=== PATIENT | female | born 1975 | race Caucasian/White ===

== ENCOUNTER 2016-04-06 16:21 | Inpatient (IN) | payer MEDICAID ==
[2016-04-06 17:00] LABS: ABSOLUTE EOSINOPHILS # (AUTO) 0.1 10^3/uL (0.0-0.6); ABSOLUTE LYMPHOCYTES (AUTO) 3.5 10^3/uL (0.5-4.7); ABSOLUTE MONOCYTES (AUTO) 0.5 10^3/uL (0.1-1.4); ABSOLUTE NEUT (AUTO) 3.2 10^3/uL (1.7-8.2); BASOPHILS % (AUTO) 0.6 % (0-2); EOSINOPHILS % (AUTO) 1.8 % (0-6); HEMATOCRIT 40.2 % (36.0-47.0); HEMOGLOBIN 12.9 g/dL (12.0-15.5); HGB HCT DIFFERENCE -1.5; LYMPHOCYTES % (AUTO) 47.2 % (13-45); MEAN CORPUSCULAR HEMOGLOBIN 29.1 pg (27.0-33.4); MEAN CORPUSCULAR HGB CONC 32.2 g/dL (32.0-36.0); MEAN CORPUSCULAR VOLUME 90 fl (80-97); MONOCYTES % (AUTO) 6.5 % (3-13); RED BLOOD COUNT 4.45 10^6/uL (3.72-5.28); RED CELL DISTRIBUTION WIDTH 13.8 % (11.5-14.0); SEGMENTED NEUTROPHILS % (AUTO) 43.9 % (42-78); WHITE BLOOD COUNT 7.3 10^3/uL (4.0-10.5)
[2016-04-06 17:09] LABS: APPEARANCE,URINE CLOUDY; BILIRUBIN,URINE NEGATIVE (NEGATIVE); GLUCOSE, URINE NEGATIVE (NEGATIVE); KETONES,URINE TRACE mg/dL (NEGATIVE); LEUKOCYTE ESTERASE,URINE SMALL (NEGATIVE); NITRITE,URINE NEGATIVE (NEGATIVE); PROTEIN,URINE NEGATIVE (NEGATIVE); URINE SPECIFIC GRAVITY 1.023; UROBILINOGEN,URINE NEGATIVE mg/dL (<2.0)
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
[2016-04-06 17:21] LABS: ALANINE AMINOTRANSFERASE 12 U/L (9-52); ALBUMIN 3.6 g/dL (3.5-5.0); ALKALINE PHOSPHATASE 58 U/L (38-126); ANION GAP 12 (5-19); ASPARTATE AMINO TRANSFERASE 28 U/L (14-36); BILIRUBIN,TOTAL 0.3 mg/dL (0.2-1.3); BLOOD UREA NITROGEN 20 mg/dL (7-20); CALCIUM 9.5 mg/dL (8.4-10.2); CARBON DIOXIDE 27 mmol/L (22-30); CHLORIDE 103 mmol/L (98-107); CREATININE RESULT 0.93 mg/dL (0.52-1.25); GLUCOSE 84 mg/dL (75-110); POTASSIUM 4.4 mmol/L (3.6-5.0); SODIUM 141.5 mmol/L (137-145); TOTAL PROTEIN 6.7 g/dL (6.3-8.2)
[2016-04-06 17:22] LABS: ALCOHOL < 10 mg/dL (NONE DETECTED)
[2016-04-06 17:32] LABS: URINE BARBITURATES SCREEN NEGATIVE; URINE METHADONE SCREEN NEGATIVE; URINE PHENCYCLIDINE SCREEN NEGATIVE
[2016-04-06] MEDS ORDERED: ALBUTEROL SULFATE HFA (90 MCG/PUFF) 8 GM MDI (1 MDI/ER DISP) IH PRN (17:59)
[2016-04-06] MEDS ORDERED: NORMAL SALINE 1000 ML 1,000 ML IV ONE (18:09)
[2016-04-06] MEDS ORDERED: ACTIVATED CHARCOAL 25 GM BOTTLE PO PRN (18:10)
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
--- NOTE | 2016-04-06 21:48 | EKG REPORT ---
SEVERITY:- ABNORMAL ECG - SINUS RHYTHM NONSPECIFIC T ABNORMALITIES, INFERIOR LEADS : Confirmed by: James Hinson MD 06-Apr-2016 21:47:06
[2016-04-07] MEDS ORDERED: HALOPERIDOL LACTATE INJ 5 MG/1 ML VIAL IV ONE (01:40)
--- NOTE | 2016-04-07 04:59 | PDOC H&P ---
History of Present Illness Admission Date/PCP: 04/07/16 01:46 RYLAN BERGER Patient complains of: Valproic acid overdose History of Present Illness: MICHELLE POON is a 41 year old female with a past medical history of bipolar Depression and borderline personality disorder who reports the emergency room she has ingested 30 valproic acid 500 mg tablets 90 minutes prior to presentation in an effort to get some sleep. Patient denies suicidal ideation and refuses charcoal she is however also agitated and manic and found to have a valproic acid of 143 and referred to the hospitalist for admission. Poison control was contacted recommending supportive care and valproic acid level every 12 hours. Past Medical History Cardiac Medical History: Denies: Coronary Artery Disease, Myocardial Infarction, Hypertension Pulmonary Medical History: Reports: Asthma, Pneumonia Denies: Bronchitis, Chronic Obstructive Pulmonary Disease (COPD) Neurological Medical History: Reports: Migraine, Seizures - last one was 3-4 yrs ago. Musculoskeltal Medical History: Denies: Arthritis Psychiatric Medical History: Reports: Attention Deficit Hyperactivity Disorder, Bipolar Disorder, Depression Hematology: Denies: Anemia Past Surgical History Past Surgical History: Reports: Appendectomy, Hysterectomy, Tonsillectomy Denies: Pacemaker Social History Smoking Status: Current Every Day Smoker Cigarettes Packs Per Day: 0.5 Number of Years Smokin Last Time Smoked: 04/06/2016 Frequency of Alcohol Use: Rare Hx Recreational Drug Use: No - patient denies Drugs: None Hx Prescription Drug Abuse: No - Advance Directive Resuscitation Status: Full Code Family History Family History: None, Other - Refuses answer Parental Family History Reviewed: Yes Children Family History Reviewed: Yes Sibling(s) Family History Reviewed.: Yes Medication/Allergy Home Medications: Lamotrigine [Lamictal] 300 mg PO DAILY 10/11/12 Ziprasidone HCl [Geodon] 160 mg PO DAILY 10/11/12 Cephalexin Monohydrate [Keflex 500 mg Capsule] 500 mg PO QID 10 Days 08/22/13 Clonidine HCl [Catapres] 0.2 mg PO QHS 08/22/13 Methylphenidate HCl [Metadate Cd] 40 mg PO DAILY 08/22/13 Emtricitabine/Tenofovir [Truvada 200 mg-300 mg Tablet] 1 each PO DAILY #30 tablet 01/01/15 Raltegravir Potassium [Isentress 400 mg Tablet] 400 mg PO BID #60 tablet Clonazepam [Klonopin 1 mg Tablet] 1 mg PO TID 04/14/15 Prazosin HCl [Minipress] 5 mg PO DAILY 04/14/15 Divalproex Sodium [Depakote ER 500 mg Tab.sr] 2 tab PO HSP PRN 04/07/16 Meclizine HCl [Antivert 25 mg Tablet] 25 mg PO TIDP PRN 04/07/16 Allergies/Adverse Reactions: carbamazepine [From Tegretol] Allergy (Unknown, Verified 03/09/16 00:33) morphine [Morphine] Allergy (Unknown, Verified 03/09/16 00:33) terbutaline sulfate [From Brethine] Allergy (Unknown, Verified 03/09/16 00:33) prednisone [Prednisone] Allergy (Verified 03/09/16 00:33) oxycodone HCl [From Percocet] Adverse Reaction (Verified 03/09/16 00:33) itching Review of Systems ROS unobtainable: Due to mental status - [place] unreliable historian answering affirmatively to all questions and yelling at providers Physical Exam Vital Signs: Temp Pulse Resp BP Pulse Ox 97.9 F 73 17 95/62 L 98 04/07/16 01:26 04/07/16 02:00 04/07/16 01:26 04/07/16 01:26 04/07/16 01:26 General appearance: PRESENT: disheveled, severe distress. ABSENT: cooperative Head exam: PRESENT: atraumatic, normocephalic Eye exam: PRESENT: conjunctiva pink, EOMI, PERRLA. ABSENT: scleral icterus Mouth exam: PRESENT: moist, tongue midline Neck exam: ABSENT: carotid bruit, JVD, lymphadenopathy, thyromegaly Respiratory exam: PRESENT: clear to auscultation soo. ABSENT: rales, rhonchi, wheezes Cardiovascular exam: PRESENT: RRR. ABSENT: diastolic murmur, rubs, systolic murmur Pulses: PRESENT: normal dorsalis pedis pul GI/Abdominal exam: PRESENT: normal bowel sounds, soft. ABSENT: distended, guarding, mass, organolmegaly, rebound, tenderness Rectal exam: PRESENT: deferred Extremities exam: PRESENT: full ROM. ABSENT: calf tenderness, clubbing, pedal edema Neurological exam: PRESENT: altered, CN II-XII grossly intact Psychiatric exam: PRESENT: agitated, anxious, manic Focused psych exam: PRESENT: delusional, euphoric, flight of ideas, paranoid, psychomotor agitation, restlessness Skin exam: PRESENT: dry, intact, warm. ABSENT: cyanosis, rash Assessment & Plan - Diagnosis (1) valproic acid overdose Is this a current diagnosis for this admission?: YesPlan: Patient is admitted to a monitored bed with sitter as she is agitated with unclear intent of overdose given history of previous. She received when necessary Haldol reevaluation of chemistry for acidosis and symptomatic management (2) Tobacco abuse Is this a current diagnosis for this admission?: YesPlan: Tobacco Dependence patient received tobacco cessation counseling and offered nicotine replacement options - Time Time Spent: 30 to 50 Minutes
[2016-04-07] MEDS: HEPARIN SOD (PORCINE) 5,000 UNIT/ML 1 ML SYRINGE SUBCUT SCH ×3 (05:45→23:11)
[2016-04-07 08:41] LABS: ALANINE AMINOTRANSFERASE 13 U/L (9-52); ALBUMIN 3.2 g/dL (3.5-5.0); ALKALINE PHOSPHATASE 55 U/L (38-126); ANION GAP 12 (5-19); ASPARTATE AMINO TRANSFERASE 21 U/L (14-36); BILIRUBIN,TOTAL 0.3 mg/dL (0.2-1.3); BLOOD UREA NITROGEN 19 mg/dL (7-20); CALCIUM 8.9 mg/dL (8.4-10.2); CARBON DIOXIDE 23 mmol/L (22-30); CHLORIDE 107 mmol/L (98-107); CREATININE RESULT 0.83 mg/dL (0.52-1.25); GLUCOSE 79 mg/dL (75-110); POTASSIUM 4.1 mmol/L (3.6-5.0); SODIUM 141.9 mmol/L (137-145); TOTAL PROTEIN 6.1 g/dL (6.3-8.2)
[2016-04-07 08:45] LABS: HEMATOCRIT 37.3 % (36.0-47.0); HEMOGLOBIN 12.1 g/dL (12.0-15.5); MEAN CORPUSCULAR HEMOGLOBIN 29.2 pg (27.0-33.4); MEAN CORPUSCULAR HGB CONC 32.4 g/dL (32.0-36.0); MEAN CORPUSCULAR VOLUME 90 fl (80-97); RED BLOOD COUNT 4.14 10^6/uL (3.72-5.28); RED CELL DISTRIBUTION WIDTH 13.6 % (11.5-14.0)
[2016-04-07 08:48] LABS: BASOPHILS % (MANUAL) 0 % (0-2); EOSINOPHILS % (MANUAL) 0 % (0-6); LYMPHOCYTES % (MANUAL) 62 % (13-45); TOTAL CELLS COUNTED 100
[2016-04-07 08:49] LABS: RBC MORPHOLOGY COMMENT NORMO-CYTIC/CHROMIC
[2016-04-07] MEDS: CLONAZEPAM 1 MG TABLET PO SCH ×3 (09:10→18:20)
[2016-04-07] MEDS: DOCUSATE SODIUM 100 MG CAPSULE PO SCH ×2 (09:11→18:21)
[2016-04-07 09:20] LABS: VALPROIC ACID 281.5 ug/mL (50.0-120.0)
[2016-04-07] MEDS: NORMAL SALINE 1000 ML 1,000 ML IV PRN ×2 (09:37→16:44)
[2016-04-07] MEDS ORDERED: (PENDING PHARMACY ID) (Prazosin Hcl [Minipress] 5 MG) PO SCH (10:00)
[2016-04-07] MEDS ORDERED: IPRATROPIUM/ALBUTEROL 0.5-2.5 MG/3 ML AMPUL NEB PRN (10:02)
[2016-04-07] MEDS ORDERED: NICOTINE 14 MG/24 HR PATCH.TD24 TD ONE (10:30)
[2016-04-07] MEDS: LACTULOSE SYRUP 20 GM/30 ML UDCUP PO SCH ×4 (10:31→23:10)
[2016-04-07 10:58] LABS: BILIRUBIN,TOTAL 0.3 mg/dL (0.2-1.3); TOTAL PROTEIN 5.9 g/dL (6.3-8.2)
[2016-04-07 10:59] LABS: CREATINE KINASE 53 U/L (30-135)
[2016-04-07] MEDS ORDERED: METHYLPREDNISOLONE INJ 40 MG/1 ML SDV IV ONE (11:00)
[2016-04-07] MEDS ORDERED: ONDANSETRON HCL INJ/PF 4 MG/2 ML SDV IV PRN (13:05)
[2016-04-07] MEDS ORDERED: HALOPERIDOL LACTATE INJ 5 MG/1 ML VIAL IV PRN (15:08)
[2016-04-07] MEDS ORDERED: GLATIRAMER ACETATE SUBCUT SCH (16:00)
[2016-04-07] MEDS ORDERED: DISP SYRIN SUBCUT SCH (16:00)
[2016-04-07] MEDS: DIAZEPAM 5 MG TABLET PO PRN (16:43)
[2016-04-07] MEDS: GLATIRAMER ACETATE SUBCUT SCH (16:44)
[2016-04-07] MEDS ORDERED: METHYLPREDNISOLONE INJ 40 MG/1 ML SDV IV SCH (22:00)
[2016-04-07] MEDS ORDERED: LEVOCARNITINE INJ/PF 1000 MG/5 ML SDV IV ONE (22:05)
[2016-04-07] MEDS: DOXYCYCLINE HYCLATE 100 MG TABLET PO SCH (23:10)
[2016-04-08] MEDS ORDERED: LEVOCARNITINE INJ/PF 1000 MG/5 ML SDV IV ONE ×2 (01:00→02:15)
[2016-04-08] MEDS ORDERED: KETOROLAC TROMETHAMINE INJ/PF 30 MG/1 ML SDV IV PRN (01:10)
[2016-04-08] MEDS: HEPARIN SOD (PORCINE) 5,000 UNIT/ML 1 ML SYRINGE SUBCUT SCH ×3 (06:02→22:58)
[2016-04-08 06:50] LABS: ABSOLUTE LYMPHOCYTES (AUTO) 1.8 10^3/uL (0.5-4.7); ABSOLUTE MONOCYTES (AUTO) 0.3 10^3/uL (0.1-1.4); ABSOLUTE NEUT (AUTO) 4.2 10^3/uL (1.7-8.2); BASOPHILS % (AUTO) 0.6 % (0-2); EOSINOPHILS % (AUTO) 0.1 % (0-6); HEMOGLOBIN 11.6 g/dL (12.0-15.5); HGB HCT DIFFERENCE -1.2; LYMPHOCYTES % (AUTO) 28.9 % (13-45); MEAN CORPUSCULAR HEMOGLOBIN 29.3 pg (27.0-33.4); MEAN CORPUSCULAR HGB CONC 32.2 g/dL (32.0-36.0); MEAN CORPUSCULAR VOLUME 91 fl (80-97); MONOCYTES % (AUTO) 4.4 % (3-13); RED BLOOD COUNT 3.96 10^6/uL (3.72-5.28); RED CELL DISTRIBUTION WIDTH 13.8 % (11.5-14.0); WHITE BLOOD COUNT 6.4 10^3/uL (4.0-10.5)
[2016-04-08] MEDS: NORMAL SALINE 1000 ML 1,000 ML IV PRN ×2 (06:59→19:26)
[2016-04-08 07:01] LABS: ALBUMIN 3.6 g/dL (3.5-5.0); ANION GAP 11 (5-19); CARBON DIOXIDE 23 mmol/L (22-30); CHLORIDE 107 mmol/L (98-107); GLUCOSE 97 mg/dL (75-110); POTASSIUM 4.9 mmol/L (3.6-5.0); SODIUM 140.9 mmol/L (137-145); TOTAL PROTEIN 6.2 g/dL (6.3-8.2)
[2016-04-08 07:02] LABS: ALANINE AMINOTRANSFERASE 20 U/L (9-52); ALKALINE PHOSPHATASE 51 U/L (38-126); ASPARTATE AMINO TRANSFERASE 18 U/L (14-36); BILIRUBIN,TOTAL 0.3 mg/dL (0.2-1.3); BLOOD UREA NITROGEN 11 mg/dL (7-20); CALCIUM 9.6 mg/dL (8.4-10.2)
[2016-04-08] MEDS ORDERED: ONDANSETRON HCL INJ/PF 4 MG/2 ML SDV ONE (09:30)
[2016-04-08] MEDS: ONDANSETRON HCL INJ/PF 4 MG/2 ML SDV IV PRN ×3 (09:43→20:46)
[2016-04-08] MEDS: DOXYCYCLINE HYCLATE 100 MG TABLET PO SCH (09:47)
[2016-04-08] MEDS: FLUOXETINE HCL 20 MG CAPSULE PO SCH (09:47)
[2016-04-08] MEDS: CLONAZEPAM 1 MG TABLET PO SCH ×3 (09:48→17:38)
[2016-04-08] MEDS: NICOTINE 14 MG/24 HR PATCH.TD24 TD SCH (09:53)
[2016-04-08] MEDS: LACTULOSE SYRUP 20 GM/30 ML UDCUP PO SCH ×2 (10:00→14:42)
[2016-04-08] MEDS: DIAZEPAM 5 MG TABLET PO PRN (10:44)
[2016-04-08] MEDS: GLATIRAMER ACETATE SUBCUT SCH (17:40)
[2016-04-08] MEDS ORDERED: PREDNISONE 20 MG TABLET PO SCH (18:00)
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
[2016-04-08] MEDS: KETOROLAC TROMETHAMINE INJ/PF 30 MG/1 ML SDV IV PRN (20:46)
[2016-04-09 05:08] VITALS: BP 125/68
[2016-04-09] MEDS: NORMAL SALINE 1000 ML 1,000 ML IV PRN (05:32)
[2016-04-09] MEDS: HEPARIN SOD (PORCINE) 5,000 UNIT/ML 1 ML SYRINGE SUBCUT SCH (05:32)
[2016-04-09 06:38] LABS: HEMATOCRIT 35.1 % (36.0-47.0); HEMOGLOBIN 11.6 g/dL (12.0-15.5); HGB HCT DIFFERENCE -0.3; MEAN CORPUSCULAR HEMOGLOBIN 29.7 pg (27.0-33.4); MEAN CORPUSCULAR VOLUME 90 fl (80-97); RED BLOOD COUNT 3.91 10^6/uL (3.72-5.28); RED CELL DISTRIBUTION WIDTH 13.7 % (11.5-14.0); WHITE BLOOD COUNT 6.9 10^3/uL (4.0-10.5)
[2016-04-09 06:46] LABS: ALANINE AMINOTRANSFERASE 25 U/L (9-52); ALBUMIN 2.9 g/dL (3.5-5.0); ALKALINE PHOSPHATASE 54 U/L (38-126); ANION GAP 8 (5-19); ASPARTATE AMINO TRANSFERASE 24 U/L (14-36); BILIRUBIN,TOTAL 0.3 mg/dL (0.2-1.3); BLOOD UREA NITROGEN 12 mg/dL (7-20); CALCIUM 9.1 mg/dL (8.4-10.2); CARBON DIOXIDE 26 mmol/L (22-30); CHLORIDE 108 mmol/L (98-107); CREATININE RESULT 0.85 mg/dL (0.52-1.25); GLUCOSE 83 mg/dL (75-110); MAGNESIUM 1.8 mg/dL (1.6-2.3); PHOSPHORUS 3.7 mg/dL (2.5-4.5); POTASSIUM 4.2 mmol/L (3.6-5.0); SODIUM 142.3 mmol/L (137-145); TOTAL PROTEIN 5.5 g/dL (6.3-8.2)
[2016-04-09 07:24] LABS: BASOPHILS % (MANUAL) 0 % (0-2); EOSINOPHILS % (MANUAL) 1 % (0-6); LYMPHOCYTES % (MANUAL) 54 % (13-45); TOTAL CELLS COUNTED 100
[2016-04-09 07:25] LABS: HYPOCHROMASIA SLIGHT
[2016-04-09] MEDS: KETOROLAC TROMETHAMINE INJ/PF 30 MG/1 ML SDV IV PRN (09:35)
[2016-04-09] MEDS ORDERED: PREDNISONE 20 MG TABLET PO SCH (10:00)
[2016-04-09] MEDS: FLUOXETINE HCL 20 MG CAPSULE PO SCH (10:41)
[2016-04-09] MEDS: CLONAZEPAM 1 MG TABLET PO SCH ×2 (10:42→14:34)
[2016-04-09] MEDS: NICOTINE 14 MG/24 HR PATCH.TD24 TD SCH (10:42)
--- NOTE | 2016-04-09 11:12 | PSYCHOLOGICAL NOTE ---
Psych Note - Psych Note Psych Note: Conducted check in with patient who is a 41 year old female admitted to [facility]ist[facility] due to Depakote OD. Note, Hospitalist contacted clinician stating the patient required IVC papers, which were provided and submitted to the ammonia still operator. Patient today states, "what is the plan?" Patient reports she was not trying to harm herself. Patient states she was upset, and her therapist was out of town, so she took extra pills to go to sleep. Patient states she texted her therapist and prescribing provider that she was "going to sleep for a while." Patient continues to talk about her son, who is a minor and bedside, will be staying with her adult daughter, but needs her food stamp card out of her belongings. Discussed with patient that once she is medically cleared , would reevaluate for disposition. Advised patient that the hospitalist has petitioned the IVC. Patient is alert and orientated to person place time and circumstance. Patient' s mood is irritable with labile affect. Patient denies suicidal and homicidal ideation. Patient denies auditory visual hallucinations; no delusions are noted. Thought process is goal oriented towards discharge. Conversational speech was labile and at times she slurred her words. Eye contact was poor. Intellectual abilities appear to be average range. Attention and concentration are fair. Insight, judgment, and impulse control are poor. Diagnosis: 296.80 Unspecified Bipolar and Related Disorder TBI R/O Borderline Personalty Disorder Patient has been placed under IVC by Hospitalist. Patient is recommended to continue under IVC for further medical care, observation, and disposition. I consulted with Dr. Carrillo in regards to the care and management of this patient.
[2016-04-09] MEDS ORDERED: OLANZAPINE INJ/PF 10 MG SDV IM PRN (14:08)
--- NOTE | 2016-04-09 14:54 | PSYCHOLOGICAL NOTE ---
Psych Note - Psych Note Psych Note: Patient is a 41 year old female under IVC at [facility] admitted to Hospitalist Services due to a Depakote overdose. Patient was medically cleared yesterday and per IVC procedure and Hospitalist directives, patient was referred for placement. Patient was accepted to [facility] for psychiatric treatment and will transfer today via [facility]. Discussed with patient her acceptance and pending transfer. Answered all questions to the best of my ability. Patient accepted the information without incident and requested to use the phone. Patient did present hyperverbal with elevated mood, suggesting pily. Patient is recommended to continue under IVC and follow through with psychiatric placement. I consulted with Dr. Carrillo in regards to the care and management of this patient. Hospitalist made aware and in agreement with disposition. 296.80 Unspecified Bipolar and Related Disorder TBI R/O Borderline Personalty Disorder
--- NOTE | 2016-04-09 16:30 | PDOC DISCHARGE SUMMARY ---
General - Admit/Disc Date/PCP Admission Date/Primary Care Provider: 04/07/16 01:46 RYLAN BERGER Discharge Date: 04/09/16 - Discharge Diagnosis (1) Multiple sclerosis Is this a current diagnosis for this admission?: Yes (2) Tobacco abuse Is this a current diagnosis for this admission?: Yes (3) valproic acid overdose Is this a current diagnosis for this admission?: Yes - Additional Information Resuscitation Status: Full Code Home Medications: Lamotrigine [Lamictal] 300 mg PO DAILY 10/11/12 Ziprasidone HCl [Geodon] 160 mg PO DAILY 10/11/12 Cephalexin Monohydrate [Keflex 500 mg Capsule] 500 mg PO QID 10 Days 08/22/13 Clonidine HCl [Catapres] 0.2 mg PO QHS 08/22/13 Methylphenidate HCl [Metadate Cd] 40 mg PO DAILY 08/22/13 Emtricitabine/Tenofovir [Truvada 200 mg-300 mg Tablet] 1 each PO DAILY #30 tablet 01/01/15 Raltegravir Potassium [Isentress 400 mg Tablet] 400 mg PO BID #60 tablet Clonazepam [Klonopin] 1 mg PO TID 04/07/16 Clonidine HCl [Catapres 0.2 mg Tablet] 0.2 mg PO QHS 04/07/16 Diazepam [Valium 5 mg Tablet] 5 mg PO TIDP PRN 04/07/16 Divalproex Sodium [Depakote ER 500 mg Tab.sr] 1,000 mg PO HSP PRN 04/07/16 Ergocalciferol (Vitamin D2) [Vitamin D2] 50,000 unit PO [id number] 04/07/16 Fluoxetine HCl [Prozac 20 mg Capsule] 60 mg PO DAILY 04/07/16 Glatiramer Acetate [Copaxone Inj/Pf 20 mg/1Ml Disp.syrg] 20 mg SUBCUT 1600 04/07 Meclizine HCl [Antivert 25 mg Tablet] 25 mg PO TID PRN 04/07/16 Prazosin HCl [Minipress] 10 mg PO DAILY 04/07/16 Promethazine HCl [Phenergan 25 mg Tablet] 25 mg PO Q6HP PRN 04/07/16 History of Present Illness Patient complains of: Overdose History of Present Illness: MICHELLE POON is a 41 year old female was admitted for intentional Depakote overdose. Hospital Course Hospital Course: Patient was admitted for intentional Depakote overdose. She was placed on involuntary commitment. Depakote level and liver function tests were monitored. Depakote level normalized. Liver function studies remain normal. Patient was evaluated by psychology and recommended continued involuntary commitment. Patient was transferred to [facility] for psychiatric services. She was discharged in stable condition. Physical Exam Vital Signs: Temp Pulse Resp BP Pulse Ox 97.7 F 102 H 16 125/68 95 04/09/16 04:48 04/09/16 09:34 04/09/16 09:34 04/09/16 04:48 04/09/16 09:34 Intake & Output 04/08/16 04/09/16 04/10/16 06:59 06:59 06:59 Intake Total 3227 1660 3671 Output Total 100 Balance 3127 1660 3671 Weight 85.3 kg 85.3 kg GENERAL: No acute distress HEENT: Conjunctiva clear, nonicteric, moist mucous membranes, no JVD, midline trachea RESPIRATORY: Clear to auscultation bilaterally, no wheezes, no rhonchi CARDIAC: Regular rate and rhythm, no murmurs/gallops/rubs ABDOMEN: Soft, nondistended, nontender, positive bowel sounds, no rebound, no guarding EXTREMETIES: No edema, cyanosis, clubbing NEUROLOGIC: Alert, oriented to person/place/time, CN's grossly intact, no focal deficits SKIN: No rash, wounds PSYCH: Normal mood, normal affect Results Laboratory Results: 04/09/16 06:16 04/09/16 06:16 04/09/16 04/09/16 04/09/16 06:16 06:16 06:16 WBC 6.9 RBC 3.91 Hgb 11.6 L Hct 35.1 L MCV 90 MCH 29.7 MCHC 33.0 RDW 13.7 Plt Count 177 Seg Neutrophils % Not Reportable Lymphocytes % Not Reportable Monocytes % Not Reportable Eosinophils % Not Reportable Basophils % Not Reportable Absolute Neutrophils Not Reportable Absolute Lymphocytes Not Reportable Absolute Monocytes Not Reportable Absolute Eosinophils Not Reportable Absolute Basophils Not Reportable Sodium 142.3 Potassium 4.2 Chloride 108 H Carbon Dioxide 26 Anion Gap 8 BUN 12 Creatinine 0.85 Est GFR ( Amer) > 60 Est GFR (Non-Af Amer) > 60 Glucose 83 Calcium 9.1 Phosphorus 3.7 Magnesium 1.8 Total Bilirubin 0.3 AST 24 ALT 25 Alkaline Phosphatase 54 Ammonia 11.0 Total Protein 5.5 L Albumin 2.9 L 04/07/16 10:32 Creatine Kinase 53 Impressions: Abdomen Ultrasound 04/09/16 00:00 IMPRESSION: Contracted gallbladder. Possible small stone. Qualifiers PATEINT BEING DISCHARGED WITH ANY OF THE FOLLOWING DIAGNOSIS?: No Plan Discharge Plan: Transfer to psychiatric hospital. Time Spent: Less than 30 Minutes
== END 2016-04-09 15:41 | DRG 918 ==
LOC: ER 16:21 → EH 23:09 → UNDOADMOB 23:09 → 4N 04-07 00:37 → EH 04-07 00:37 → OBSVTOIN 04-07 01:46 → 4N 04-07 01:46 → EH 04-07 01:46
PROVIDERS: ADMIT Internal Medicine; ATTEND Internal Medicine
DX: T42.6X2A Poisoning by other antiepileptic and sedative-hypnotic drugs, intentional self-harm, initial encounter (principal); F31.9 Bipolar disorder, unspecified; F90.9 Attention-deficit hyperactivity disorder, unspecified type; F17.210 Nicotine dependence, cigarettes, uncomplicated; I05.0 Rheumatic mitral stenosis; E66.9 Obesity, unspecified; Z90.49 Acquired absence of other specified parts of digestive tract; Z88.6 Allergy status to analgesic agent
CPT/HCPCS: 36415; 76705; 80053; 80076; 80164; 80307; 81001; 82140; 82550; 83735; 84100; 84443; 85025; 93005; 93010; 96360; 99285; J1630; J1644; J1885; J1955; J2405; J2920; J3490; J7030; J7512

== ENCOUNTER 2016-08-06 15:10 | Emergency (ER) | payer MEDICAID | END 2016-08-06 15:55 | disposition left against medical advice (07) | LOC: ER 15:10 | DX: Z53.21 Procedure and treatment not carried out due to patient leaving prior to being seen by health care provider (principal) ==

== ENCOUNTER 2016-10-04 02:12 | Emergency (ER) | payer MEDICAID ==
[2016-10-04] MEDS ORDERED: DEXAMETHASONE SOD PHOS INJ 10 MG/1 ML VIAL IM ONE (03:47)
[2016-10-04] MEDS ORDERED: KETOROLAC TROMETHAMINE 60 MG/2 ML SDV IM ONE (03:47)
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
--- NOTE | 2016-10-04 04:23 | RADIOLOGY REPORT (SQ) ---
EXAM DESCRIPTION: L SPINE WHOLE COMPLETED DATE/TIME: 10/04/2016 4:14 am REASON FOR STUDY: fall back pain COMPARISON: 03/09/2016. NUMBER OF VIEWS: Five views including obliques. TECHNIQUE: AP, lateral, oblique, and sacral radiographic images acquired of the lumbar spine. LIMITATIONS: None. FINDINGS: MINERALIZATION: Normal. SEGMENTATION: Normal. No transitional anatomy. ALIGNMENT: Normal. VERTEBRAE: Maintained height. No fracture or worrisome bone lesion. DISCS: Preserved height. No significant osteophytes or end plate irregularity. POSTERIOR ELEMENTS: Pedicles and facets are intact. No pars defect or posterior arch defects. HARDWARE: None in the spine. PARASPINAL SOFT TISSUES: Normal. PELVIS: Intact as visualized. No fractures or worrisome bone lesions. SI joints intact. OTHER: No other significant finding. IMPRESSION: NORMAL 5 VIEW LUMBAR SPINE. TECHNICAL DOCUMENTATION: JOB ID: [id number] [employer]- All Rights Reserved
[2016-10-04 06:29] VITALS: BP 110/70
== END 2016-10-04 06:27 | disposition home or self-care (01) ==
LOC: ER 02:12
DX: M79.604 Pain in right leg (principal); M54.5 Low back pain; R20.2 Paresthesia of skin; W01.0XXA Fall on same level from slipping, tripping and stumbling without subsequent striking against object, initial encounter; Y92.009 Unspecified place in unspecified non-institutional (private) residence as the place of occurrence of the external cause
CPT/HCPCS: 99283; 96372; 72110; J1885; J1100

== ENCOUNTER 2016-10-27 12:32 | Emergency (ER) | payer MEDICAID ==
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
--- NOTE | 2016-10-27 15:02 | RADIOLOGY REPORT (SQ) ---
EXAM DESCRIPTION: CT LUMBAR SPINE WITH COMPLETED DATE/TIME: 10/27/2016 2:50 pm REASON FOR STUDY: lumbar pain COMPARISON: None. TECHNIQUE: Axial images acquired through the lumbar spine with intravenous contrast. Images reviewe d with lung, soft tissue and bone windows. Reconstructed coronal and sagittal MPR images reviewed. All images stored on PACS. All CT scanners at this facility use dose modulation, iterative reconstruction, and/or weight based d osing when appropriate to reduce radiation dose to as low as reasonably achievable (ALARA). [facility]: Dose Right [facility]: CareDose [facility]: Dose Right [facility]: Teradose 4D [facility]: [employer] RADIATION DOSE: mGy. LIMITATIONS: None. FINDINGS: SEGMENTATION: Normal. No transitional anatomy. ALIGNMENT: Normal. VERTEBRAL BODIES: No fractures. No dislocation. No acute findings. DISCS: Study limited by lack of intrathecal contrast. There appears to be a focal central disc protr usion at the L5-S1 level. MRI may be of value for further evaluation PEDICLES, TRANSVERSE PROCESSES: No fractures. No dislocation. No acute findings. FACETS, POSTERIOR ELEMENTS: No fractures. No dislocation. No spinal stenosis. HARDWARE: None in the spine. VISUALIZED RIBS: No fractures. SOFT TISSUES: No significant or acute finding in adjacent soft tissues. OTHER: No other significant finding. IMPRESSION: There appears to be a focal central disc protrusion at the L5-S1 level. MRI may be of v alue for further evaluation. Other findings as noted above TECHNICAL DOCUMENTATION: JOB ID: [id number] Quality ID # [id number]: Final reports with documentation of one or more dose reduction techniques (e.g., Au tomated exposure control, adjustment of the mA and/or kV according to patient size, use of iterative reconstruction technique) 2010 [employer]- All Rights Reserved
--- NOTE | 2016-10-27 18:02 | RADIOLOGY REPORT (SQ) ---
EXAM DESCRIPTION: MRI LUMBAR SPINE WITHOUT COMPLETED DATE/TIME: 10/27/2016 5:27 pm REASON FOR STUDY: right leg weakness COMPARISON: None. TECHNIQUE: Sagittal and Axial imaging includes T1, T2, STIR and gradient echo sequences. Coronal T2/ HASTE imaging. LIMITATIONS: None. FINDINGS: VISUALIZED UPPER ABDOMEN: Limited evaluation. No acute or suspicious findings suggested. SEGMENTATION: No transitional anatomy. The lowest well-developed disc space is labeled L5-S1. ALIGNMENT: Anatomic. VERTEBRAE: Intact. BONE MARROW: Normal. No marrow replacement. Mild L5-S1 level reactive endplate changes. DISC SIGNAL: 6 mm disc protrusion in the right lateral recess and right neural foramen at the L5-S1 l evel. Otherwise No significant loss of height. Mild desiccation at the L2-3 and L4-5 levels. POSTERIOR ELEMENTS: Generally intact. No pars defect evident. HARDWARE: None in the spine. CORD AND CONUS: Normal in size and signal intensity. Conus at the appropriate level. SOFT TISSUES: No aortic aneurysm seen. No bulky retroperitoneal adenopathy or mass. No paraspinal mas s or fluid. L1-L2: No significant spinal stenosis or exit foraminal stenosis. L2-L3: No significant spinal stenosis or exit foraminal stenosis. L3-L4: No significant spinal stenosis or exit foraminal stenosis. L4-L5: No significant spinal stenosis or exit foraminal stenosis. L5-S1: 6 mm disc protrusion in the right lateral recess and right neural foramen at the L5-S1 level w ith mass effect on the exiting right L5 and descending right S1 nerves. Mild -moderate right exit fo raminal stenosis. LOWER THORACIC: Incompletely imaged. No stenosis seen. SACRUM: Visualized upper sacrum intact. OTHER: No other significant findings. IMPRESSION: 6 mm disc protrusion in the right lateral recess and right neural foramen at the L5-S1 l evel with mass effect on the exiting right L5 and descending right S1 nerves. TECHNICAL DOCUMENTATION: JOB ID: [id number] [employer]- All Rights Reserved
[2016-10-27] MEDS ORDERED: HYDROMORPHONE HCL INJ/PF 2 MG/ML AMPULE IV ONE ×2 (18:43→20:07)
[2016-10-27] MEDS ORDERED: NORMAL SALINE 1000 ML 1,000 ML IV PRN (18:48)
[2016-10-27] MEDS ORDERED: DEXAMETHASONE SOD PHOS INJ 10 MG/1 ML VIAL IV ONE (18:48)
[2016-10-27 20:59] VITALS: BP 124/81
== END 2016-10-27 21:16 | disposition short-term general hospital (02) ==
LOC: ER 12:32
DX: G35 Multiple sclerosis (principal); R29.898 Other symptoms and signs involving the musculoskeletal system; F17.210 Nicotine dependence, cigarettes, uncomplicated; I69.954 Hemiplegia and hemiparesis following unspecified cerebrovascular disease affecting left non-dominant side; Z90.710 Acquired absence of both cervix and uterus; Z88.6 Allergy status to analgesic agent
CPT/HCPCS: 96376; 99285; 96361; 96374; 96375; 72148; 72132; J1170; J7030; J1100

== ENCOUNTER 2016-11-25 17:36 | Emergency (ER) | payer MEDICAID ==
[2016-11-25 19:07] LABS: ABSOLUTE EOSINOPHILS # (AUTO) 0.1 10^3/uL (0.0-0.6); ABSOLUTE MONOCYTES (AUTO) 0.6 10^3/uL (0.1-1.4); ABSOLUTE NEUT (AUTO) 4.5 10^3/uL (1.7-8.2); BASOPHILS % (AUTO) 0.3 % (0-2); EOSINOPHILS % (AUTO) 1.4 % (0-6); HEMATOCRIT 34.1 % (36.0-47.0); HEMOGLOBIN 11.2 g/dL (12.0-15.5); HGB HCT DIFFERENCE -0.5; LYMPHOCYTES % (AUTO) 16.6 % (13-45); MEAN CORPUSCULAR HEMOGLOBIN 29.2 pg (27.0-33.4); MEAN CORPUSCULAR HGB CONC 32.9 g/dL (32.0-36.0); MEAN CORPUSCULAR VOLUME 89 fl (80-97); MONOCYTES % (AUTO) 9.6 % (3-13); RED BLOOD COUNT 3.84 10^6/uL (3.72-5.28); RED CELL DISTRIBUTION WIDTH 15.8 % (11.5-14.0); SEGMENTED NEUTROPHILS % (AUTO) 72.1 % (42-78); WHITE BLOOD COUNT 6.2 10^3/uL (4.0-10.5)
[2016-11-25 19:23] LABS: APPEARANCE,URINE CLEAR; BILIRUBIN,URINE NEGATIVE (NEGATIVE); GLUCOSE, URINE NEGATIVE (NEGATIVE); KETONES,URINE NEGATIVE (NEGATIVE); LEUKOCYTE ESTERASE,URINE NEGATIVE (NEGATIVE); NITRITE,URINE NEGATIVE (NEGATIVE); PROTEIN,URINE NEGATIVE (NEGATIVE); URINE SPECIFIC GRAVITY 1.004; UROBILINOGEN,URINE NEGATIVE mg/dL (<2.0)
[2016-11-25 19:25] LABS: ALANINE AMINOTRANSFERASE 28 U/L (9-52); ALBUMIN 3.7 g/dL (3.5-5.0); ALCOHOL < 10 mg/dL (NONE DETECTED); ALKALINE PHOSPHATASE 66 U/L (38-126); ANION GAP 10 (5-19); ASPARTATE AMINO TRANSFERASE 23 U/L (14-36); BILIRUBIN,DIRECT 0.3 mg/dL (0.0-0.4); BILIRUBIN,TOTAL 0.4 mg/dL (0.2-1.3); BLOOD UREA NITROGEN 5 mg/dL (7-20); CALCIUM 9.4 mg/dL (8.4-10.2); CARBON DIOXIDE 28 mmol/L (22-30); CHLORIDE 101 mmol/L (98-107); CREATININE RESULT 0.55 mg/dL (0.52-1.25); GLUCOSE 103 mg/dL (75-110); POTASSIUM 3.8 mmol/L (3.6-5.0); SODIUM 139.3 mmol/L (137-145); TOTAL PROTEIN 6.4 g/dL (6.3-8.2)
[2016-11-25 19:34] LABS: URINE BARBITURATES SCREEN NEGATIVE; URINE METHADONE SCREEN NEGATIVE; URINE OPIATES LOW NEGATIVE; URINE PHENCYCLIDINE SCREEN NEGATIVE
--- NOTE | 2016-11-25 20:37 | EKG REPORT ---
SEVERITY:- NORMAL ECG - SINUS RHYTHM : Confirmed by: Valeria Bowers 25-Nov-2016 20:36:31
[2016-11-25] MEDS ORDERED: DIPHENHYDRAMINE HCL 25 MG CAPSULE PO ONE (20:55)
[2016-11-25] MEDS ORDERED: OLANZAPINE 5 MG TAB.RAPDIS PO ONE (21:01)
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
[2016-11-26] MEDS ORDERED: OLANZAPINE 5 MG TABLET PO SCH (14:00)
[2016-11-26] MEDS ORDERED: DISP SYRIN SUBCUT SCH (16:00)
[2016-11-26] MEDS ORDERED: GLATIRAMER ACETATE SUBCUT SCH (16:00)
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
[2016-11-26] MEDS: CYCLOBENZAPRINE HCL 10 MG TABLET PO SCH (21:07)
[2016-11-26] MEDS: GABAPENTIN 300 MG CAPSULE PO SCH (21:08)
[2016-11-26] MEDS ORDERED: FLUOXETINE HCL 20 MG CAPSULE PO SCH (22:00)
[2016-11-27] MEDS: CYCLOBENZAPRINE HCL 10 MG TABLET PO SCH (07:26)
[2016-11-27] MEDS: GABAPENTIN 300 MG CAPSULE PO SCH (07:27)
[2016-11-27] MEDS ORDERED: OLANZAPINE 5 MG TABLET PO SCH (10:00)
[2016-11-27] MEDS ORDERED: (PENDING PHARMACY ID) (Prazosin Hcl [Minipress] 5 MG) PO SCH (10:00)
--- NOTE | 2016-11-27 10:04 | ER Document Report ---
Doctor's Note Notes: 11/27/16 10:03 Rounds: Chart reviewed and patient interviewed. This is this patient's 10th visit to this emergency department in the past 13 months. Patient appears to be well. Denies suicidal ideation at this time. Vital signs are all essentially normal. Lab studies were all essentially normal. Patient appears to be medically stable for transfer or discharge. Mental health has assessed the patient and feel she can be discharged. Terell Wood MD
[2016-11-27 10:51] VITALS: BP 128/88
== END 2016-11-27 10:25 | disposition home or self-care (01) ==
LOC: ER 17:36 → EEVIPCON 17:36 → ER 11-27 10:25
DX: T50.902A Poisoning by unspecified drugs, medicaments and biological substances, intentional self-harm, initial encounter (principal); R45.851 Suicidal ideations; F12.99 Cannabis use, unspecified with unspecified cannabis-induced disorder; F17.210 Nicotine dependence, cigarettes, uncomplicated; Z79.899 Other long term (current) drug therapy
CPT/HCPCS: 93005; 99285; 96372; 36415; 80307 ×4; 85025; 80053; 81001; 93010; J3490 ×4

== ENCOUNTER 2016-12-24 08:41 | Emergency (ER) | payer MEDICAID ==
[2016-12-24] MEDS ORDERED: RABIES IMMUNE GLOBULIN INJ/PF 300 UNIT/2 ML SDV IM ONE (10:08)
[2016-12-24] MEDS ORDERED: LIDOCAINE 1% INJ-PF (10 MG/ML) 30 ML SDV INJ ONE (10:08)
[2016-12-24] MEDS ORDERED: ACETAMINOPHEN 325 MG TABLET PO ONE (10:08)
[2016-12-24] MEDS ORDERED: RABIES VACCINE (PCEC)/PF 2.5 UNIT/1 ML KIT IM ONE (10:08)
--- NOTE | 2016-12-24 10:36 | RADIOLOGY REPORT (SQ) ---
EXAM DESCRIPTION: FOREARM LEFT COMPLETED DATE/TIME: 12/24/2016 10:29 am REASON FOR STUDY: dog bite COMPARISON: None. NUMBER OF VIEWS: Two views. TECHNIQUE: Two radiographic images acquired of the left forearm, including elbow and wrist in at jon st one projection. LIMITATIONS: None. FINDINGS: MINERALIZATION: Normal. BONES: No acute fracture. No worrisome bone lesions. SOFT TISSUES: Soft tissue gas along the dorsum of the radial soft tissues. No foreign body. OTHER: No other significant finding. IMPRESSION: No radio opaque foreign body. No acute fracture. TECHNICAL DOCUMENTATION: JOB ID: [id number] [employer]- All Rights Reserved
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
[2016-12-24 12:59] VITALS: BP 115/72
== END 2016-12-24 13:02 | disposition home or self-care (01) ==
LOC: ER 08:41
PROC: 0HQEXZZ Repair Left Lower Arm Skin, External Approach (ICD-10-PCS; principal; 2016-12-24)
DX: S41.152A Open bite of left upper arm, initial encounter (principal); W54.0XXA Bitten by dog, initial encounter; Y93.K1 Activity, walking an animal; F17.200 Nicotine dependence, unspecified, uncomplicated; Z23 Encounter for immunization; I69.954 Hemiplegia and hemiparesis following unspecified cerebrovascular disease affecting left non-dominant side; Z90.710 Acquired absence of both cervix and uterus; Z88.6 Allergy status to analgesic agent
CPT/HCPCS: 99283; 96372; 90471; 73090; 90675; 90376; 12001; J3490 ×2

== ENCOUNTER 2017-02-02 13:05 | Emergency (ER) | payer MEDICAID ==
[2017-02-02] MEDS ORDERED: LIDOCAINE 4%/TETRACAINE 0.5%/EPI 0.18% 5 ML TOPICAL SOLN TOP ONE (14:03)
[2017-02-02] MEDS ORDERED: LIDOCAINE 1% INJ-PF (10 MG/ML) 30 ML SDV INJ ONE (14:33)
[2017-02-02] MEDS ORDERED: HYDROCODONE/ACETAMINOPHEN 7.5-325 MG TABLET PO ONE (14:35)
[2017-02-02] MEDS ORDERED: ONDANSETRON 4 MG TAB.RAPDIS PO ONE (14:35)
[2017-02-02] MEDS ORDERED: DIPH/PERTUSS(ACELL)/TETANUS VAC/PF 0.5 ML SYR (>=10YO) IM ONE (17:27)
[2017-02-02] MEDS ORDERED: OXYCODONE-ACETAMINOPHEN 5-325 MG TABLET PO ONE (17:27)
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
[2017-02-02 18:03] VITALS: BP 135/83
== END 2017-02-02 18:03 | disposition home or self-care (01) ==
LOC: ER 13:05
PROC: 0HQGXZZ Repair Left Hand Skin, External Approach (ICD-10-PCS; principal; 2017-02-02)
DX: S61.412A Laceration without foreign body of left hand, initial encounter (principal); W54.0XXA Bitten by dog, initial encounter; F17.210 Nicotine dependence, cigarettes, uncomplicated
CPT/HCPCS: 99283; 90471; 90715; 12001; S0119; J3490 ×2

== ENCOUNTER 2017-02-04 09:00 | Emergency (ER) | payer MEDICAID ==
[2017-02-04 09:05] VITALS: BP 87/57
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
--- NOTE | 2017-02-04 10:15 | RADIOLOGY REPORT (SQ) ---
EXAM DESCRIPTION: CT HEAD WITHOUT COMPLETED DATE/TIME: 02/04/2017 10:06 am REASON FOR STUDY: Fall with head injury COMPARISON: 03/09/2016, 02/21/2015, 07/13/2009 CT brain exams TECHNIQUE: Axial images acquired through the brain without intravenous contrast. Images reviewed wi th bone, brain and subdural windows. Images stored on PACS. All CT scanners at this facility use dose modulation, iterative reconstruction, and/or weight based d osing when appropriate to reduce radiation dose to as low as reasonably achievable (ALARA). [facility]: Dose Right [facility]: CareDose [facility]: Dose Right [facility]: Teradose 4D [facility]: Smart Azzure IT RADIATION DOSE: CT Rad equipment meets quality standard of care and radiation dose reduction techniq ues were employed. CTDIvol: 49.0 mGy. DLP: 881 mGy-cm. mGy. LIMITATIONS: None. FINDINGS: VENTRICLES: Normal size and contour. CEREBRUM: No masses. No hemorrhage. No midline shift. No evidence for acute infarction. Normal gra y/white matter differentiation. No areas of low density in the white matter. CEREBELLUM: No masses. No hemorrhage. No alteration of density. No evidence for acute infarction. EXTRAAXIAL SPACES: No fluid collections. No masses. ORBITS AND GLOBE: No intra- or extraconal masses. Normal contour of globe without masses. CALVARIUM: No fracture. PARANASAL SINUSES: No fluid or mucosal thickening. SOFT TISSUES: No mass or hematoma. OTHER: No other significant finding. IMPRESSION: NORMAL BRAIN CT WITHOUT CONTRAST. EVIDENCE OF ACUTE STROKE: NO. COMMENT: Quality ID # [id number]: Final reports with documentation of one or more dose reduction techniques (e.g., Automated exposure control, adjustment of the mA and/or kV according to patient size, use of iterative reconstruction technique) TECHNICAL DOCUMENTATION: JOB ID: [id number] [employer]- All Rights Reserved
--- NOTE | 2017-02-04 10:28 | RADIOLOGY REPORT (SQ) ---
EXAM DESCRIPTION: RIBS RIGHT W/PA CHEST COMPLETED DATE/TIME: 02/04/2017 10:14 am REASON FOR STUDY: Fall injury to ribs COMPARISON: 02/05/2009 PA chest, right rib detail Two-view chest 12/21/2012 TECHNIQUE: Frontal view of the chest and additional views of the right ribs acquired. NUMBER OF VIEWS: PA chest, right rib detail two views LIMITATIONS: None. FINDINGS: FRONTAL CXR: No pneumothorax. No pleural effusion. No atelectasis or infiltrates. Cardi ac silhouette size, megan unremarkable. RIBS: No displaced rib fractures. No lytic or blastic bony lesions. OTHER: No other significant finding. IMPRESSION: NO PNEUMOTHORAX. NO DISPLACED RIB FRACTURES. COMMENT: SITE OF TRAUMA/COMPLAINT MARKED/STAMP COMPLETED: Yes TECHNICAL DOCUMENTATION: JOB ID: [id number] [employer]- All Rights Reserved
== END 2017-02-04 10:46 | disposition left against medical advice (07) ==
LOC: ER 09:00
DX: Z48.02 Encounter for removal of sutures (principal); S09.90XA Unspecified injury of head, initial encounter; S20.219A Contusion of unspecified front wall of thorax, initial encounter; G35 Multiple sclerosis; Z91.81 History of falling; F17.210 Nicotine dependence, cigarettes, uncomplicated; W19.XXXA Unspecified fall, initial encounter
CPT/HCPCS: 70450; 99281

== ENCOUNTER 2017-02-10 07:03 | Emergency (ER) | payer MEDICAID ==
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
[2017-02-10] MEDS ORDERED: NORMAL SALINE 1000 ML 1,000 ML IV PRN (07:28)
[2017-02-10] MEDS ORDERED: LIDOCAINE 5% (700 MG) TRANSDERMAL ADH..PATCH TP ONE (07:35)
[2017-02-10] MEDS ORDERED: KETOROLAC TROMETHAMINE 60 MG/2 ML SDV IM ONE (07:35)
[2017-02-10 08:55] VITALS: BP 118/74
== END 2017-02-10 08:54 | disposition home or self-care (01) ==
LOC: ER 07:03
DX: S20.211D Contusion of right front wall of thorax, subsequent encounter (principal); R06.02 Shortness of breath; F31.9 Bipolar disorder, unspecified; G35 Multiple sclerosis; J44.9 Chronic obstructive pulmonary disease, unspecified; R07.81 Pleurodynia; Z79.899 Other long term (current) drug therapy; X58.XXXD Exposure to other specified factors, subsequent encounter
CPT/HCPCS: 99283; 96372; J1885; J3490

== ENCOUNTER 2017-02-12 20:04 | Emergency (ER) | payer MEDICAID ==
[2017-02-12] MEDS ORDERED: OXYCODONE-ACETAMINOPHEN 5-325 MG TABLET PO ONE (20:32)
[2017-02-12] MEDS ORDERED: ALBUTEROL SULFATE 0.083% NEB 2.5 MG/3 ML AMPUL NEB ONE (20:33)
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
[2017-02-12 21:01] LABS: ABSOLUTE BASOPHILS # (AUTO) 0.1 10^3/uL (0.0-0.2); ABSOLUTE EOSINOPHILS # (AUTO) 0.1 10^3/uL (0.0-0.6); ABSOLUTE LYMPHOCYTES (AUTO) 5.1 10^3/uL (0.5-4.7); ABSOLUTE MONOCYTES (AUTO) 0.5 10^3/uL (0.1-1.4); ABSOLUTE NEUT (AUTO) 4.6 10^3/uL (1.7-8.2); BASOPHILS % (AUTO) 0.5 % (0-2); EOSINOPHILS % (AUTO) 0.8 % (0-6); HEMATOCRIT 39.9 % (36.0-47.0); HEMOGLOBIN 13.4 g/dL (12.0-15.5); HGB HCT DIFFERENCE 0.3; LYMPHOCYTES % (AUTO) 49.5 % (13-45); MEAN CORPUSCULAR HEMOGLOBIN 28.1 pg (27.0-33.4); MEAN CORPUSCULAR HGB CONC 33.4 g/dL (32.0-36.0); MEAN CORPUSCULAR VOLUME 84 fl (80-97); MONOCYTES % (AUTO) 4.9 % (3-13); RED BLOOD COUNT 4.75 10^6/uL (3.72-5.28); RED CELL DISTRIBUTION WIDTH 15.5 % (11.5-14.0); SEGMENTED NEUTROPHILS % (AUTO) 44.3 % (42-78); WHITE BLOOD COUNT 10.4 10^3/uL (4.0-10.5)
[2017-02-12 21:09] LABS: ALANINE AMINOTRANSFERASE 24 U/L (9-52); ALBUMIN 4.5 g/dL (3.5-5.0); ALKALINE PHOSPHATASE 97 U/L (38-126); ANION GAP 17 (5-19); ASPARTATE AMINO TRANSFERASE 20 U/L (14-36); BILIRUBIN,DIRECT 0.3 mg/dL (0.0-0.4); BILIRUBIN,TOTAL 0.3 mg/dL (0.2-1.3); BLOOD UREA NITROGEN 8 mg/dL (7-20); CALCIUM 10.2 mg/dL (8.4-10.2); CARBON DIOXIDE 20 mmol/L (22-30); CHLORIDE 107 mmol/L (98-107); CREATININE RESULT 0.67 mg/dL (0.52-1.25); GLUCOSE 97 mg/dL (75-110); SODIUM 144.4 mmol/L (137-145); TOTAL PROTEIN 7.3 g/dL (6.3-8.2)
--- NOTE | 2017-02-12 21:53 | RADIOLOGY REPORT (SQ) ---
EXAM DESCRIPTION: CTA CHEST COMPLETED DATE/TIME: 02/12/2017 9:19 pm REASON FOR STUDY: sob, right rib pain COMPARISON: None. TECHNIQUE: CT scan of the chest performed using helical scanning technique with dynamic intravenous contrast injection. Images reviewed with lung, soft tissue and bone windows. Reconstructed coronal and sagittal MPR images reviewed. Additional 3 dimensional post-processing performed to develop Maximal Intensity Projection images (IL P). All images stored on PACS. All CT scanners at this facility use dose modulation, iterative reconstruction, and/or weight based d osing when appropriate to reduce radiation dose to as low as reasonably achievable (ALARA). [facility]: Dose Right [facility]: CareDose [facility]: Dose Right [facility]: Teradose 4D [facility]: allyve CONTRAST TYPE AND DOSE: contrast/concentration: Isovue 370.00 mg/ml; Total Contrast Delivered: 100.0 ml; Total Saline Delivered: 60.0 ml Contrast bolus optimized for the pulmonary arteries. Not diagnostic for the aorta. RENAL FUNCTION: None required. The patient is less than 50 years old. RADIATION DOSE: . LIMITATIONS: None. FINDINGS: LUNGS AND PLEURA: No masses, infiltrates, pneumothorax. No pleural effusions, calcificati ons. AORTA AND GREAT VESSELS: No aneurysm. Contrast bolus not optimized for the aorta. HEART: No pericardial effusion. No significant coronary artery calcifications. PULMONARY ARTERIES: No emboli visualized in the main pulmonary arteries or the segmental branches. HILAR AND MEDIASTINAL STRUCTURES: No identified masses or abnormal nodes. HARDWARE: None in the chest. UPPER ABDOMEN: No significant findings. Limited exam. THYROID AND OTHER SOFT TISSUES: No masses. No adenopathy. BONES: No acute or significant finding. 3D MIPS: Confirm above findings. OTHER: No other significant finding. IMPRESSION: NORMAL CTA OF THE CHEST. NO PULMONARY EMBOLI. COMMENT: Quality ID # [id number]: Final reports with documentation of one or more dose reduction techniques (e.g., Automated exposure control, adjustment of the mA and/or kV according to patient size, use of iterative reconstruction technique) TECHNICAL DOCUMENTATION: JOB ID: [id number] [place]-72 2010 [employer]- All Rights Reserved
[2017-02-12] MEDS ORDERED: ALBUTEROL SULFATE HFA (90 MCG/PUFF) 8 GM MDI (1 MDI/ER DISP) IH PRN (22:54)
[2017-02-12 23:21] VITALS: BP 121/78
--- NOTE | 2017-02-13 07:55 | EKG REPORT ---
SEVERITY:- ABNORMAL ECG - SINUS RHYTHM VENTRICULAR TRIGEMINY LATERAL Q WAVES, PROBABLY NORMAL VARIATION : Confirmed by: James Hinson MD 13-Feb-2017 07:54:22
== END 2017-02-12 23:21 | disposition home or self-care (01) ==
LOC: ER 20:04
DX: R07.89 Other chest pain (principal); J44.9 Chronic obstructive pulmonary disease, unspecified; J98.01 Acute bronchospasm; R06.02 Shortness of breath; R05 Cough; M25.551 Pain in right hip; W19.XXXA Unspecified fall, initial encounter; Y93.89 Activity, other specified; I49.1 Atrial premature depolarization; G35 Multiple sclerosis; Z88.5 Allergy status to narcotic agent; Z88.6 Allergy status to analgesic agent; Z88.8 Allergy status to other drugs, medicaments and biological substances; Z87.891 Personal history of nicotine dependence; Z87.01 Personal history of pneumonia (recurrent)
CPT/HCPCS: 93005; 94640; 99285; 36415; 85025; 80053; 71275; 93010; J3490

== ENCOUNTER 2017-03-12 12:31 | Emergency (ER) | payer MEDICAID ==
[2017-03-12 13:26] VITALS: BP 114/53
[2017-03-12 14:23] LABS: ABSOLUTE BASOPHILS # (AUTO) 0.1 10^3/uL (0.0-0.2); ABSOLUTE EOSINOPHILS # (AUTO) 0.1 10^3/uL (0.0-0.6); ABSOLUTE LYMPHOCYTES (AUTO) 4.8 10^3/uL (0.5-4.7); ABSOLUTE MONOCYTES (AUTO) 0.7 10^3/uL (0.1-1.4); ABSOLUTE NEUT (AUTO) 4.9 10^3/uL (1.7-8.2); BASOPHILS % (AUTO) 0.9 % (0-2); HEMATOCRIT 37.8 % (36.0-47.0); HEMOGLOBIN 12.5 g/dL (12.0-15.5); LYMPHOCYTES % (AUTO) 45.5 % (13-45); MEAN CORPUSCULAR HEMOGLOBIN 28.5 pg (27.0-33.4); MEAN CORPUSCULAR HGB CONC 33.2 g/dL (32.0-36.0); MEAN CORPUSCULAR VOLUME 86 fl (80-97); MONOCYTES % (AUTO) 6.2 % (3-13); RED CELL DISTRIBUTION WIDTH 16.3 % (11.5-14.0); SEGMENTED NEUTROPHILS % (AUTO) 46.4 % (42-78); TOTAL CELLS COUNTED % (AUTO) 100 %; WHITE BLOOD COUNT 10.6 10^3/uL (4.0-10.5)
--- NOTE | 2017-03-12 14:25 | RADIOLOGY REPORT (SQ) ---
EXAM DESCRIPTION: CHEST SINGLE VIEW COMPLETED DATE/TIME: 03/12/2017 2:16 pm REASON FOR STUDY: cough COMPARISON: 02/04/2017. EXAM PARAMETERS: NUMBER OF VIEWS: One view. TECHNIQUE: Single frontal radiographic view of the chest acquired. RADIATION DOSE: NA LIMITATIONS: None. FINDINGS: LUNGS AND PLEURA: No opacities, masses or pneumothorax. No pleural effusion. MEDIASTINUM AND HILAR STRUCTURES: No masses. Contour normal. HEART AND VASCULAR STRUCTURES: Heart normal in size. Normal vasculature. BONES: No acute findings. HARDWARE: None in the chest. OTHER: No other significant finding. IMPRESSION: NO ACUTE RADIOGRAPHIC FINDING IN THE CHEST. TECHNICAL DOCUMENTATION: JOB ID: [id number] [employer]- All Rights Reserved
[2017-03-12 14:42] LABS: ALANINE AMINOTRANSFERASE 21 U/L (9-52); ALBUMIN 4.8 g/dL (3.5-5.0); ALKALINE PHOSPHATASE 82 U/L (38-126); ANION GAP 14 (5-19); ASPARTATE AMINO TRANSFERASE 21 U/L (14-36); BILIRUBIN,DIRECT 0.2 mg/dL (0.0-0.4); BILIRUBIN,TOTAL 0.3 mg/dL (0.2-1.3); BLOOD UREA NITROGEN 11 mg/dL (7-20); CALCIUM 10.6 mg/dL (8.4-10.2); CARBON DIOXIDE 24 mmol/L (22-30); CHLORIDE 108 mmol/L (98-107); GLUCOSE 82 mg/dL (75-110); POTASSIUM 3.8 mmol/L (3.6-5.0); SODIUM 145.5 mmol/L (137-145); TOTAL PROTEIN 7.5 g/dL (6.3-8.2)
[2017-03-12 14:43] LABS: ACETAMINOPHEN < 10 ug/mL (10-30); ALCOHOL < 10 mg/dL (NONE DETECTED); SALICYLATE < 1.0 mg/dL (2.0-20.0)
[2017-03-12 14:53] LABS: PLATELET COUNT 231 10^3/uL (150-450)
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
--- NOTE | 2017-03-13 07:58 | EKG REPORT ---
SEVERITY:- NORMAL ECG - SINUS RHYTHM : Confirmed by: Yaquelin Ferrer MD 13-Mar-2017 07:57:39
== END 2017-03-12 14:50 | disposition left against medical advice (07) ==
LOC: ER 12:31
DX: F41.9 Anxiety disorder, unspecified (principal); F32.9 Major depressive disorder, single episode, unspecified; T43.226A Underdosing of selective serotonin reuptake inhibitors, initial encounter; T46.5X6A Underdosing of other antihypertensive drugs, initial encounter; Z91.128 Patient's intentional underdosing of medication regimen for other reason; Z76.0 Encounter for issue of repeat prescription
CPT/HCPCS: 36415; 71010; 80053; 80307; 84484; 85025; 93005; 93010; 99281

== ENCOUNTER 2017-03-27 11:40 | Emergency (ER) | payer MEDICAID ==
[2017-03-27 11:45] VITALS: BP 114/69
[2017-03-27] MEDS ORDERED: KETOROLAC TROMETHAMINE 60 MG/2 ML SDV IM ONE (13:08)
[2017-03-27] MEDS ORDERED: DEXAMETHASONE SOD PHOS INJ 10 MG/1 ML VIAL IM ONE (13:08)
[2017-03-27] MEDS ORDERED: LIDOCAINE 5% (700 MG) TRANSDERMAL ADH..PATCH TP ONE (13:09)
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
== END 2017-03-27 13:10 | disposition left against medical advice (07) ==
LOC: ER 11:40
DX: G89.29 Other chronic pain (principal); M54.41 Lumbago with sciatica, right side; M54.42 Lumbago with sciatica, left side; F17.210 Nicotine dependence, cigarettes, uncomplicated; G35 Multiple sclerosis; I69.354 Hemiplegia and hemiparesis following cerebral infarction affecting left non-dominant side; Z88.6 Allergy status to analgesic agent; Z90.710 Acquired absence of both cervix and uterus
CPT/HCPCS: 99281; 99406

== ENCOUNTER 2017-04-07 12:09 | Emergency (ER) | payer MEDICAID ==
[2017-04-07 12:41] VITALS: BP 124/73
--- NOTE | 2017-04-07 23:29 | EKG REPORT ---
SEVERITY:- NORMAL ECG - SINUS RHYTHM : Confirmed by: Valeria Bowers 07-Apr-2017 23:28:35
== END 2017-04-07 13:50 | disposition left against medical advice (07) ==
LOC: ER 12:09
DX: Z53.21 Procedure and treatment not carried out due to patient leaving prior to being seen by health care provider (principal)
CPT/HCPCS: 93005; 93010

== ENCOUNTER 2017-04-27 09:06 | Emergency (ER) | payer SELFPAY ==
[2017-04-27] MEDS ORDERED: DIPH/PERTUSS(ACELL)/TETANUS VAC/PF 0.5 ML SYR (>=10YO) IM ONE (09:39)
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
[2017-04-27] MEDS ORDERED: HYDROCODONE/ACETAMINOPHEN 5-325 MG TABLET PO ONE (10:04)
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
[2017-04-27 10:33] VITALS: BP 96/61
== END 2017-04-27 10:33 | disposition home or self-care (01) ==
LOC: ER 09:06
DX: S51.812A Laceration without foreign body of left forearm, initial encounter (principal); L08.9 Local infection of the skin and subcutaneous tissue, unspecified; W25.XXXA Contact with sharp glass, initial encounter; J45.909 Unspecified asthma, uncomplicated; F17.210 Nicotine dependence, cigarettes, uncomplicated; Z88.6 Allergy status to analgesic agent; Z88.5 Allergy status to narcotic agent; Z91.048 Other nonmedicinal substance allergy status; Z88.8 Allergy status to other drugs, medicaments and biological substances
CPT/HCPCS: 99282

== ENCOUNTER 2017-05-11 15:50 | Emergency (ER) | payer MEDICAID ==
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
[2017-05-11 17:22] LABS: APPEARANCE,URINE CLEAR; BILIRUBIN,URINE NEGATIVE (NEGATIVE); COLOR,URINE STRAW; GLUCOSE, URINE NEGATIVE (NEGATIVE); KETONES,URINE NEGATIVE (NEGATIVE); LEUKOCYTE ESTERASE,URINE NEGATIVE (NEGATIVE); NITRITE,URINE NEGATIVE (NEGATIVE); PROTEIN,URINE NEGATIVE (NEGATIVE); URINE SPECIFIC GRAVITY 1.003; UROBILINOGEN,URINE NEGATIVE mg/dL (<2.0)
[2017-05-11] MEDS ORDERED: LIDOCAINE 5% (700 MG) TRANSDERMAL ADH..PATCH TP ONE (17:29)
[2017-05-11] MEDS ORDERED: KETOROLAC TROMETHAMINE INJ/PF 30 MG/1 ML SDV IV ONE (17:29)
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
[2017-05-11 18:32] LABS: ABSOLUTE BASOPHILS # (AUTO) 0.1 10^3/uL (0.0-0.2); ABSOLUTE EOSINOPHILS # (AUTO) 0.2 10^3/uL (0.0-0.6); ABSOLUTE MONOCYTES (AUTO) 0.8 10^3/uL (0.1-1.4); ABSOLUTE NEUT (AUTO) 5.5 10^3/uL (1.7-8.2); BASOPHILS % (AUTO) 0.9 % (0-2); EOSINOPHILS % (AUTO) 1.2 % (0-6); HEMATOCRIT 45.4 % (36.0-47.0); HEMOGLOBIN 15.4 g/dL (12.0-15.5); LYMPHOCYTES % (AUTO) 48.1 % (13-45); MEAN CORPUSCULAR HEMOGLOBIN 29.1 pg (27.0-33.4); MEAN CORPUSCULAR HGB CONC 33.8 g/dL (32.0-36.0); MEAN CORPUSCULAR VOLUME 86 fl (80-97); PLATELET COUNT 298 10^3/uL (150-450); RED BLOOD COUNT 5.29 10^6/uL (3.72-5.28); RED CELL DISTRIBUTION WIDTH 14.6 % (11.5-14.0); SEGMENTED NEUTROPHILS % (AUTO) 43.8 % (42-78); TOTAL CELLS COUNTED % (AUTO) 100 %; WHITE BLOOD COUNT 12.5 10^3/uL (4.0-10.5)
--- NOTE | 2017-05-11 19:26 | RADIOLOGY REPORT (SQ) ---
EXAM DESCRIPTION: MRI LUMBAR SPINE WITHOUT COMPLETED DATE/TIME: 05/11/2017 6:59 pm REASON FOR STUDY: back pain, loss of bladder, leg weakness COMPARISON: 10/27/2016 TECHNIQUE: Sagittal and Axial imaging includes T1, T2, STIR and gradient echo sequences. Coronal T2/ HASTE imaging. LIMITATIONS: None. FINDINGS: VISUALIZED UPPER ABDOMEN: Limited evaluation. No acute or suspicious findings suggested. SEGMENTATION: Mild S1 level transitional anatomy. The lowest well-developed disc space is labeled L5- S1. ALIGNMENT: Anatomic. VERTEBRAE: Intact. BONE MARROW: Mild L5-S1 level endplate reactive changes, stable. DISC SIGNAL: Mild desiccation at the L2-3, L4-5, and L5-S1 levels. Approximately 50% disc height los s at the L5-S1 level with 6 mm central disc protrusion. POSTERIOR ELEMENTS: Generally intact. No pars defect evident. HARDWARE: None in the spine. CORD AND CONUS: Normal in size and signal intensity. Conus at the appropriate level. SOFT TISSUES: No aortic aneurysm seen. No bulky retroperitoneal adenopathy or mass. No paraspinal mas s or fluid. L1-L2: No significant spinal stenosis or exit foraminal stenosis. L2-L3: No significant spinal stenosis or exit foraminal stenosis. L3-L4: No significant spinal stenosis or exit foraminal stenosis. L4-L5: No significant spinal stenosis or exit foraminal stenosis. L5-S1: No significant spinal stenosis. Mild right lateral recess and neuroforaminal stenosis due to 6 mm central disc protrusion. LOWER THORACIC: Incompletely imaged. No stenosis seen. SACRUM: Visualized upper sacrum intact. OTHER: No other significant findings. IMPRESSION: Mild L5-S1 level right lateral recess and neuroforaminal stenosis due to [address] protrusion, these findings have not changed compared with the prior study. No acute findings. TECHNICAL DOCUMENTATION: JOB ID: [id number] [place]-72 2010 [employer]- All Rights Reserved Reading location - IP/workstation name: [email or web address]
[2017-05-11 19:41] LABS: ALANINE AMINOTRANSFERASE 18 U/L (9-52); ALBUMIN 4.5 g/dL (3.5-5.0); ALKALINE PHOSPHATASE 90 U/L (38-126); ANION GAP 12 (5-19); ASPARTATE AMINO TRANSFERASE 22 U/L (14-36); BILIRUBIN,DIRECT 0.1 mg/dL (0.0-0.4); BILIRUBIN,TOTAL 0.2 mg/dL (0.2-1.3); BLOOD UREA NITROGEN 10 mg/dL (7-20); CALCIUM 10.3 mg/dL (8.4-10.2); CARBON DIOXIDE 24 mmol/L (22-30); CHLORIDE 108 mmol/L (98-107); GLUCOSE 89 mg/dL (75-110); POTASSIUM 3.9 mmol/L (3.6-5.0); SODIUM 144.4 mmol/L (137-145); TOTAL PROTEIN 6.9 g/dL (6.3-8.2)
[2017-05-11 20:01] VITALS: BP 112/64
== END 2017-05-11 20:02 | disposition home or self-care (01) ==
LOC: ER 15:50
DX: S20.221A Contusion of right back wall of thorax, initial encounter (principal); G89.29 Other chronic pain; M54.41 Lumbago with sciatica, right side; M54.42 Lumbago with sciatica, left side; R32 Unspecified urinary incontinence; F17.200 Nicotine dependence, unspecified, uncomplicated; W01.0XXA Fall on same level from slipping, tripping and stumbling without subsequent striking against object, initial encounter; Y92.002 Bathroom of unspecified non-institutional (private) residence as the place of occurrence of the external cause; Z88.6 Allergy status to analgesic agent; Z90.710 Acquired absence of both cervix and uterus
CPT/HCPCS: 99283; 96374; 36415; 84703; 85025; 81025; 80053; 81001; 72148; J1885; J3490

== ENCOUNTER 2017-05-25 12:46 | Emergency (ER) | payer MEDICAID ==
[2017-05-25] MEDS ORDERED: ONDANSETRON 4 MG TAB.RAPDIS PO ONE ×2 (13:33→16:06)
[2017-05-25] MEDS ORDERED: RINGERS SOLUTION,LACTATED 1,000 ML IV ONE (13:33)
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
--- NOTE | 2017-05-25 14:10 | RADIOLOGY REPORT (SQ) ---
EXAM DESCRIPTION: CHEST PA/LAT COMPLETED DATE/TIME: 05/25/2017 2:01 pm REASON FOR STUDY: cough, fever COMPARISON: 12/21/2012 EXAM PARAMETERS: NUMBER OF VIEWS: two views TECHNIQUE: Digital Frontal and Lateral radiographic views of the chest acquired. RADIATION DOSE: NA LIMITATIONS: none FINDINGS: LUNGS AND PLEURA: No opacities, masses or pneumothorax. No pleural effusion. MEDIASTINUM AND HILAR STRUCTURES: No masses or contour abnormalities. HEART AND VASCULAR STRUCTURES: Heart normal size. No evidence for failure. BONES: Irregular appearance about the posterior lateral aspect of the right 10th rib. The remainder of the bony structures are unremarkable HARDWARE: None in the chest. OTHER: No other significant finding. IMPRESSION: Abnormality of the posterior lateral aspect of the right 10th rib. This may represent a subacute or healing fracture versus superimposed densities versus destructive bony lesion. Recommen d correlation with patient's history. TECHNICAL DOCUMENTATION: JOB ID: [id number] [employer]- All Rights Reserved Reading location - IP/workstation name: [email or web address]
[2017-05-25 15:00] LABS: ALANINE AMINOTRANSFERASE 39 U/L (9-52); ALBUMIN 5.2 g/dL (3.5-5.0); ALKALINE PHOSPHATASE 93 U/L (38-126); ANION GAP 17 (5-19); ASPARTATE AMINO TRANSFERASE 48 U/L (14-36); BILIRUBIN,DIRECT 0.2 mg/dL (0.0-0.4); BILIRUBIN,TOTAL 0.2 mg/dL (0.2-1.3); BLOOD UREA NITROGEN 17 mg/dL (7-20); CALCIUM 10.5 mg/dL (8.4-10.2); CARBON DIOXIDE 23 mmol/L (22-30); CHLORIDE 100 mmol/L (98-107); GLUCOSE 106 mg/dL (75-110); POTASSIUM 4.5 mmol/L (3.6-5.0); TOTAL PROTEIN 7.9 g/dL (6.3-8.2)
[2017-05-25 15:01] LABS: APPEARANCE,URINE CLOUDY; BILIRUBIN,URINE NEGATIVE (NEGATIVE); COLOR,URINE AMBER; GLUCOSE, URINE NEGATIVE (NEGATIVE); KETONES,URINE TRACE mg/dL (NEGATIVE); LEUKOCYTE ESTERASE,URINE NEGATIVE (NEGATIVE); NITRITE,URINE NEGATIVE (NEGATIVE); PROTEIN,URINE 30 mg/dL (NEGATIVE); URINE SPECIFIC GRAVITY 1.039; UROBILINOGEN,URINE NEGATIVE mg/dL (<2.0)
[2017-05-25 15:02] LABS: ABSOLUTE LYMPHOCYTES (AUTO) 0.9 10^3/uL (0.5-4.7); ABSOLUTE MONOCYTES (AUTO) 0.8 10^3/uL (0.1-1.4); BASOPHILS % (AUTO) 0.3 % (0-2); EOSINOPHILS % (AUTO) 0.1 % (0-6); HEMATOCRIT 41.2 % (36.0-47.0); HEMOGLOBIN 13.8 g/dL (12.0-15.5); LYMPHOCYTES % (AUTO) 11.1 % (13-45); MEAN CORPUSCULAR HEMOGLOBIN 28.8 pg (27.0-33.4); MEAN CORPUSCULAR HGB CONC 33.6 g/dL (32.0-36.0); MEAN CORPUSCULAR VOLUME 86 fl (80-97); MONOCYTES % (AUTO) 10.5 % (3-13); PLATELET COUNT 289 10^3/uL (150-450); RED CELL DISTRIBUTION WIDTH 14.8 % (11.5-14.0); TOTAL CELLS COUNTED % (AUTO) 100 %; WHITE BLOOD COUNT 7.7 10^3/uL (4.0-10.5)
[2017-05-25] MEDS ORDERED: ACETAMINOPHEN WITH CODEINE 120-12 MG/5 ML UDCUP PO ONE (16:06)
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
[2017-05-25] MEDS ORDERED: IBUPROFEN 800 MG TABLET PO ONE (17:22)
[2017-05-25 17:37] VITALS: BP 116/77
== END 2017-05-25 17:37 | disposition home or self-care (01) ==
LOC: ER 12:46
DX: J18.1 Lobar pneumonia, unspecified organism (principal); R11.2 Nausea with vomiting, unspecified; R50.9 Fever, unspecified; R05 Cough; J44.9 Chronic obstructive pulmonary disease, unspecified; F17.200 Nicotine dependence, unspecified, uncomplicated
CPT/HCPCS: 99284; 96360; 36415; 87086; 85025; 80053; 81001; 71046; J3490 ×2; S0119; J7120

== ENCOUNTER 2017-05-28 08:38 | Emergency (ER) | payer MEDICAID ==
[2017-05-28] MEDS ORDERED: ONDANSETRON HCL INJ/PF 4 MG/2 ML SDV IV ONE (09:23)
[2017-05-28 10:28] LABS: ABSOLUTE LYMPHOCYTES (AUTO) 2.2 10^3/uL (0.5-4.7); ABSOLUTE MONOCYTES (AUTO) 0.6 10^3/uL (0.1-1.4); ABSOLUTE NEUT (AUTO) 1.5 10^3/uL (1.7-8.2); BASOPHILS % (AUTO) 0.5 % (0-2); EOSINOPHILS % (AUTO) 0.2 % (0-6); HEMATOCRIT 42.6 % (36.0-47.0); HEMOGLOBIN 14.3 g/dL (12.0-15.5); LYMPHOCYTES % (AUTO) 51.1 % (13-45); MEAN CORPUSCULAR HEMOGLOBIN 28.4 pg (27.0-33.4); MEAN CORPUSCULAR HGB CONC 33.5 g/dL (32.0-36.0); MEAN CORPUSCULAR VOLUME 85 fl (80-97); MONOCYTES % (AUTO) 14.6 % (3-13); PLATELET COUNT 250 10^3/uL (150-450); RED BLOOD COUNT 5.02 10^6/uL (3.72-5.28); RED CELL DISTRIBUTION WIDTH 14.3 % (11.5-14.0); SEGMENTED NEUTROPHILS % (AUTO) 33.6 % (42-78); TOTAL CELLS COUNTED % (AUTO) 100 %; WHITE BLOOD COUNT 4.3 10^3/uL (4.0-10.5)
[2017-05-28 10:33] LABS: ALANINE AMINOTRANSFERASE 47 U/L (9-52); ALBUMIN 4.5 g/dL (3.5-5.0); ALKALINE PHOSPHATASE 78 U/L (38-126); ANION GAP 15 (5-19); ASPARTATE AMINO TRANSFERASE 48 U/L (14-36); BILIRUBIN,DIRECT 0.1 mg/dL (0.0-0.4); BILIRUBIN,TOTAL 0.2 mg/dL (0.2-1.3); BLOOD UREA NITROGEN 10 mg/dL (7-20); CALCIUM 9.8 mg/dL (8.4-10.2); CARBON DIOXIDE 26 mmol/L (22-30); CHLORIDE 99 mmol/L (98-107); GLUCOSE 95 mg/dL (75-110); POTASSIUM 3.7 mmol/L (3.6-5.0); SODIUM 139.9 mmol/L (137-145); TOTAL PROTEIN 6.9 g/dL (6.3-8.2)
--- NOTE | 2017-05-28 10:33 | RADIOLOGY REPORT (SQ) ---
EXAM DESCRIPTION: CT CHEST WITHOUT COMPLETED DATE/TIME: 05/28/2017 10:13 am REASON FOR STUDY: pneumonia vs rib abnormality COMPARISON: Two-view chest 05/25/2017 CT angio chest 02/12/2017 TECHNIQUE: CT scan performed of the chest without intravenous contrast. Images reviewed with lung, soft tissue and bone windows. Reconstructed coronal and sagittal MPR images reviewed. All images st ored on PACS. All CT scanners at this facility use dose modulation, iterative reconstruction, and/or weight based d osing when appropriate to reduce radiation dose to as low as reasonably achievable (ALARA). [facility]: Dose Right [facility]: CareDose [facility]: Dose Right [facility]: Teradose 4D [facility]: [employer] RADIATION DOSE: CT Rad equipment meets quality standard of care and radiation dose reduction techniq ues were employed. CTDIvol: 5.9 mGy. DLP: 240 mGy-cm. mGy. LIMITATIONS: No technical limitations. FINDINGS: LUNGS AND PLEURA: No masses, infiltrates, pneumothorax. No pleural effusions, calcificati ons. HILAR AND MEDIASTINAL STRUCTURES: Stable 1.5 x 0.8 cm precarinal lymph node image 21, stable 1.7 x 0. 9 cm aortopulmonary window lymph node image 22. Otherwise unremarkable mediastinal structures HEART AND VASCULAR STRUCTURES: No aneurysm. No pericardial effusion. UPPER ABDOMEN: No significant findings. Limited exam. THYROID AND OTHER SOFT TISSUES: No masses. No adenopathy. BONES: There is bony callus along the anterior right 8th rib fracture and posterior right 10th rib fr acture. These findings account for the abnormality identified on two-view chest 05/25/2017 HARDWARE: None in the chest. OTHER: No other significant findings. IMPRESSION: NO SIGNIFICANT FINDING ON NON-CONTRASTED CHEST CT. TECHNICAL DOCUMENTATION: JOB ID: [id number] Quality ID # [id number]: Final reports with documentation of one or more dose reduction techniques (e.g., Au tomated exposure control, adjustment of the mA and/or kV according to patient size, use of iterative reconstruction technique) 2010 [employer]- All Rights Reserved Reading location - IP/workstation name: [email or web address]
[2017-05-28] MEDS ORDERED: ONDANSETRON ODT 4 MG TAB (6 TAB/ER DISP) PO PRN (11:08)
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
[2017-05-28 11:27] VITALS: BP 122/83
== END 2017-05-28 11:28 | disposition home or self-care (01) ==
LOC: ER 08:38
DX: J06.9 Acute upper respiratory infection, unspecified (principal); R11.2 Nausea with vomiting, unspecified; R19.7 Diarrhea, unspecified; R50.9 Fever, unspecified; R05 Cough; Z88.6 Allergy status to analgesic agent; Z90.710 Acquired absence of both cervix and uterus
CPT/HCPCS: 36415; 71250; 80053; 85025; 99284

== ENCOUNTER 2017-06-13 11:18 | Emergency (ER) | payer MEDICAID ==
[2017-06-13] MEDS ORDERED: NORMAL SALINE 1000 ML 1,000 ML IV ONE ×2 (12:38→15:44)
[2017-06-13] MEDS ORDERED: HYDROMORPHONE HCL INJ/PF 2 MG/ML AMPULE IV ONE (12:38)
[2017-06-13] MEDS ORDERED: METHYLPREDNISOLONE INJ 1000 MG VIAL IV ONE (12:38)
[2017-06-13 12:50] LABS: ABSOLUTE LYMPHOCYTES (AUTO) 3.9 10^3/uL (0.5-4.7); ABSOLUTE MONOCYTES (AUTO) 0.6 10^3/uL (0.1-1.4); BASOPHILS % (AUTO) 0.4 % (0-2); EOSINOPHILS % (AUTO) 0.5 % (0-6); HEMATOCRIT 43.8 % (36.0-47.0); HEMOGLOBIN 14.6 g/dL (12.0-15.5); LYMPHOCYTES % (AUTO) 45.5 % (13-45); MEAN CORPUSCULAR HEMOGLOBIN 28.9 pg (27.0-33.4); MEAN CORPUSCULAR HGB CONC 33.4 g/dL (32.0-36.0); MEAN CORPUSCULAR VOLUME 86 fl (80-97); PLATELET COUNT 306 10^3/uL (150-450); RED BLOOD COUNT 5.07 10^6/uL (3.72-5.28); RED CELL DISTRIBUTION WIDTH 14.4 % (11.5-14.0); SEGMENTED NEUTROPHILS % (AUTO) 46.6 % (42-78); TOTAL CELLS COUNTED % (AUTO) 100 %; WHITE BLOOD COUNT 8.6 10^3/uL (4.0-10.5)
[2017-06-13] MEDS ORDERED: FENTANYL CITRATE INJ/PF 100 MCG/2 ML AMPUL IV ONE ×2 (12:54→15:43)
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
[2017-06-13 13:01] LABS: ANION GAP 10 (5-19); BLOOD UREA NITROGEN 9 mg/dL (7-20); CALCIUM 10.3 mg/dL (8.4-10.2); CARBON DIOXIDE 26 mmol/L (22-30); CHLORIDE 109 mmol/L (98-107); GLUCOSE 92 mg/dL (75-110); POTASSIUM 4.4 mmol/L (3.6-5.0); SODIUM 145.4 mmol/L (137-145)
[2017-06-13 13:55] LABS: APPEARANCE,URINE SLIGHTLY-CLOUDY; BILIRUBIN,URINE NEGATIVE (NEGATIVE); COLOR,URINE YELLOW; GLUCOSE, URINE NEGATIVE (NEGATIVE); KETONES,URINE NEGATIVE (NEGATIVE); LEUKOCYTE ESTERASE,URINE TRACE (NEGATIVE); NITRITE,URINE NEGATIVE (NEGATIVE); PROTEIN,URINE NEGATIVE (NEGATIVE); UROBILINOGEN,URINE NEGATIVE mg/dL (<2.0)
[2017-06-13 14:07] LABS: URINE AMPHETAMINES SCREEN NEGATIVE; URINE BARBITURATES SCREEN NEGATIVE; URINE BENZODIAZEPINES SCREEN UNCONFIRMED POSITIVE; URINE COCAINE SCREEN NEGATIVE; URINE MARIJUANA (THC) SCREEN UNCONFIRMED POSITIVE; URINE METHADONE SCREEN NEGATIVE; URINE PHENCYCLIDINE SCREEN NEGATIVE
--- NOTE | 2017-06-13 14:54 | RADIOLOGY REPORT (SQ) ---
EXAM DESCRIPTION: MRI LUMBAR SPINE WITHOUT COMPLETED DATE/TIME: 06/13/2017 2:23 pm REASON FOR STUDY: MS, also fall, urinating on herself, n/t legs COMPARISON: 05/11/2017. TECHNIQUE: Sagittal and Axial imaging includes T1, T2, STIR and gradient echo sequences. Coronal T2/ HASTE imaging. LIMITATIONS: Patient motion. FINDINGS: VISUALIZED UPPER ABDOMEN: Limited evaluation. No acute or suspicious findings suggested. SEGMENTATION: No transitional anatomy. The lowest well-developed disc space is labeled L5-S1. ALIGNMENT: Anatomic. VERTEBRAE: Intact. BONE MARROW: Mild reactive endplate changes L5-S1. DISC SIGNAL: Desiccation L2- 3, L4-5 and L5-S1. POSTERIOR ELEMENTS: Intact. HARDWARE: None in the spine. CORD AND CONUS: Normal in size and signal intensity. Conus at the appropriate level. SOFT TISSUES: No aortic aneurysm seen. No bulky retroperitoneal adenopathy or mass. No paraspinal mas s or fluid. L1-L2: No significant spinal stenosis or exit foraminal stenosis. L2-L3: No significant spinal stenosis or exit foraminal stenosis. L3-L4: Facet arthropathy. No significant spinal stenosis or exit foraminal stenosis. L4-L5: Disc bulge and facet arthropathy. No significant spinal stenosis or exit foraminal stenosis. L5-S1: Unchanged right paracentral disc herniation. Facet arthropathy. LOWER THORACIC: Incompletely imaged. No stenosis seen. SACRUM: Visualized upper sacrum intact. OTHER: No other significant findings. IMPRESSION: Disc herniation L5-S 1. Facet arthropathy. No significant change. TECHNICAL DOCUMENTATION: JOB ID: [id number] [employer]- All Rights Reserved Reading location - IP/workstation name: [email or web address]
[2017-06-13 17:42] VITALS: BP 104/71
== END 2017-06-13 17:42 | disposition home or self-care (01) ==
LOC: ER 11:18
DX: G35 Multiple sclerosis (principal); M51.26 Other intervertebral disc displacement, lumbar region; M79.1 Myalgia; R20.0 Anesthesia of skin; W01.0XXA Fall on same level from slipping, tripping and stumbling without subsequent striking against object, initial encounter; F17.200 Nicotine dependence, unspecified, uncomplicated; I10 Essential (primary) hypertension; J45.909 Unspecified asthma, uncomplicated
CPT/HCPCS: 96376; 99284; 96361; 51701; 96374; 96375; 36415; 85025; 80048; 81001; 80307; 72148; J3010; J2930; J7030

== ENCOUNTER 2017-06-14 17:11 | Emergency (ER) | payer MEDICAID ==
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
[2017-06-14] MEDS ORDERED: FENTANYL CITRATE INJ/PF 100 MCG/2 ML AMPUL IV ONE (18:38)
[2017-06-14] MEDS ORDERED: HALOPERIDOL LACTATE INJ 5 MG/1 ML VIAL IV ONE ×2 (18:38→19:47)
[2017-06-14] MEDS ORDERED: KETOROLAC TROMETHAMINE INJ/PF 30 MG/1 ML SDV IV ONE (18:39)
[2017-06-14] MEDS ORDERED: METHYLPREDNISOLONE INJ 125 MG/2 ML SDV IV ONE (18:39)
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
[2017-06-14 21:43] VITALS: BP 136/83
== END 2017-06-14 20:55 | disposition home or self-care (01) ==
LOC: ER 17:11
DX: G35 Multiple sclerosis (principal); R39.81 Functional urinary incontinence; F41.9 Anxiety disorder, unspecified; R51 Headache; R05 Cough; H54.7 Unspecified visual loss; R00.0 Tachycardia, unspecified; F17.200 Nicotine dependence, unspecified, uncomplicated; F12.10 Cannabis abuse, uncomplicated; Z91.048 Other nonmedicinal substance allergy status; Z88.5 Allergy status to narcotic agent; Z88.6 Allergy status to analgesic agent; Z88.8 Allergy status to other drugs, medicaments and biological substances
CPT/HCPCS: 96376; 99283; 51702; 96374; 96375; J3010; J1630; J2930; J1885

== ENCOUNTER 2017-07-09 13:42 | Emergency (ER) | payer MEDICAID ==
[2017-07-09 13:51] VITALS: BP 116/69
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
[2017-07-09 15:25] LABS: ABSOLUTE EOSINOPHILS # (AUTO) 0.1 10^3/uL (0.0-0.6); ABSOLUTE LYMPHOCYTES (AUTO) 3.6 10^3/uL (0.5-4.7); ABSOLUTE MONOCYTES (AUTO) 0.6 10^3/uL (0.1-1.4); ABSOLUTE NEUT (AUTO) 5.1 10^3/uL (1.7-8.2); BASOPHILS % (AUTO) 0.5 % (0-2); EOSINOPHILS % (AUTO) 0.9 % (0-6); HEMATOCRIT 38.6 % (36.0-47.0); HEMOGLOBIN 12.8 g/dL (12.0-15.5); LYMPHOCYTES % (AUTO) 38.3 % (13-45); MEAN CORPUSCULAR HEMOGLOBIN 29.4 pg (27.0-33.4); MEAN CORPUSCULAR HGB CONC 33.2 g/dL (32.0-36.0); MEAN CORPUSCULAR VOLUME 89 fl (80-97); PLATELET COUNT 267 10^3/uL (150-450); RED BLOOD COUNT 4.36 10^6/uL (3.72-5.28); RED CELL DISTRIBUTION WIDTH 14.6 % (11.5-14.0); SEGMENTED NEUTROPHILS % (AUTO) 54.3 % (42-78); TOTAL CELLS COUNTED % (AUTO) 100 %; WHITE BLOOD COUNT 9.5 10^3/uL (4.0-10.5)
[2017-07-09 15:27] LABS: APPEARANCE,URINE CLEAR; BILIRUBIN,URINE NEGATIVE (NEGATIVE); COLOR,URINE YELLOW; GLUCOSE, URINE NEGATIVE (NEGATIVE); KETONES,URINE NEGATIVE (NEGATIVE); LEUKOCYTE ESTERASE,URINE NEGATIVE (NEGATIVE); NITRITE,URINE NEGATIVE (NEGATIVE); PROTEIN,URINE NEGATIVE (NEGATIVE); URINE SPECIFIC GRAVITY 1.012; UROBILINOGEN,URINE NEGATIVE mg/dL (<2.0)
[2017-07-09 15:40] LABS: URINE AMPHETAMINES SCREEN NEGATIVE; URINE BARBITURATES SCREEN NEGATIVE; URINE BENZODIAZEPINES SCREEN UNCONFIRMED POSITIVE; URINE COCAINE SCREEN NEGATIVE; URINE MARIJUANA (THC) SCREEN UNCONFIRMED POSITIVE; URINE METHADONE SCREEN NEGATIVE; URINE PHENCYCLIDINE SCREEN NEGATIVE
--- NOTE | 2017-07-09 15:40 | RADIOLOGY REPORT (SQ) ---
EXAM DESCRIPTION: L SPINE WHOLE COMPLETED DATE/TIME: 07/09/2017 3:24 pm REASON FOR STUDY: LOW BACK PAIN, FALL COMPARISON: None. NUMBER OF VIEWS: Five views including obliques. TECHNIQUE: AP, lateral, oblique, and sacral radiographic images acquired of the lumbar spine. LIMITATIONS: Overlying bowel gas. FINDINGS: MINERALIZATION: Normal. SEGMENTATION: Sacralization of L5. ALIGNMENT: Normal. VERTEBRAE: Maintained height. No fracture or worrisome bone lesion. DISCS: Disc space narrowing and osteophyte formation L5-S1. POSTERIOR ELEMENTS: Pedicles and facets are intact. No pars defect or posterior arch defects. HARDWARE: None in the spine. PARASPINAL SOFT TISSUES: Normal. PELVIS: Intact as visualized. No fractures or worrisome bone lesions. SI joints intact. OTHER: No other significant finding. IMPRESSION: No acute findings. TECHNICAL DOCUMENTATION: JOB ID: [id number] [employer]- All Rights Reserved Reading location - IP/workstation name: [email or web address]
[2017-07-09 15:41] LABS: ALANINE AMINOTRANSFERASE 31 U/L (9-52); ALBUMIN 4.4 g/dL (3.5-5.0); ALKALINE PHOSPHATASE 75 U/L (38-126); ANION GAP 14 (5-19); ASPARTATE AMINO TRANSFERASE 25 U/L (14-36); BILIRUBIN,DIRECT 0.3 mg/dL (0.0-0.4); BILIRUBIN,TOTAL 0.3 mg/dL (0.2-1.3); BLOOD UREA NITROGEN 9 mg/dL (7-20); CALCIUM 9.9 mg/dL (8.4-10.2); CARBON DIOXIDE 25 mmol/L (22-30); CHLORIDE 109 mmol/L (98-107); GLUCOSE 102 mg/dL (75-110); POTASSIUM 4.5 mmol/L (3.6-5.0); SODIUM 148.3 mmol/L (137-145); TOTAL PROTEIN 7.2 g/dL (6.3-8.2)
[2017-07-09 15:58] LABS: FREE T3 4.36 pg/mL (2.77-5.27); FREE T4 (FREE THYROXINE) 1.08 ng/dL (0.78-2.19)
[2017-07-09 16:11] LABS: THYROID STIMULATING HORMONE 0.25 uIU/mL (0.47-4.68)
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
== END 2017-07-09 18:00 | disposition home or self-care (01) ==
LOC: ER 13:42
DX: G89.29 Other chronic pain (principal); M54.5 Low back pain; R32 Unspecified urinary incontinence; S30.0XXA Contusion of lower back and pelvis, initial encounter; W19.XXXA Unspecified fall, initial encounter; Y92.512 Supermarket, store or market as the place of occurrence of the external cause; F17.200 Nicotine dependence, unspecified, uncomplicated; Z88.6 Allergy status to analgesic agent; Z88.5 Allergy status to narcotic agent; Z91.048 Other nonmedicinal substance allergy status; Z88.8 Allergy status to other drugs, medicaments and biological substances
CPT/HCPCS: 36415; 72110; 80053; 80307; 81001; 84439; 84443; 84481; 85025; 99283

== ENCOUNTER 2017-08-10 08:44 | Emergency (ER) | payer MEDICAID ==
[2017-08-10 08:52] VITALS: BP 104/70
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
[2017-08-10 10:15] LABS: ABSOLUTE BASOPHILS # (AUTO) 0.1 10^3/uL (0.0-0.2); ABSOLUTE EOSINOPHILS # (AUTO) 0.2 10^3/uL (0.0-0.6); ABSOLUTE LYMPHOCYTES (AUTO) 3.6 10^3/uL (0.5-4.7); ABSOLUTE MONOCYTES (AUTO) 0.5 10^3/uL (0.1-1.4); ABSOLUTE NEUT (AUTO) 3.7 10^3/uL (1.7-8.2); BASOPHILS % (AUTO) 0.7 % (0-2); EOSINOPHILS % (AUTO) 2.3 % (0-6); HEMATOCRIT 41.9 % (36.0-47.0); LYMPHOCYTES % (AUTO) 44.7 % (13-45); MEAN CORPUSCULAR HEMOGLOBIN 29.6 pg (27.0-33.4); MEAN CORPUSCULAR HGB CONC 33.5 g/dL (32.0-36.0); MEAN CORPUSCULAR VOLUME 89 fl (80-97); MONOCYTES % (AUTO) 6.5 % (3-13); PLATELET COUNT 298 10^3/uL (150-450); RED BLOOD COUNT 4.74 10^6/uL (3.72-5.28); RED CELL DISTRIBUTION WIDTH 14.6 % (11.5-14.0); SEGMENTED NEUTROPHILS % (AUTO) 45.8 % (42-78); TOTAL CELLS COUNTED % (AUTO) 100 %; WHITE BLOOD COUNT 8.1 10^3/uL (4.0-10.5)
[2017-08-10] MEDS ORDERED: NORMAL SALINE 1000 ML 1,000 ML IV ONE (10:17)
[2017-08-10] MEDS ORDERED: ACETAMINOPHEN 325 MG TABLET PO ONE (10:17)
[2017-08-10] MEDS ORDERED: LIDOCAINE 5% (700 MG) TRANSDERMAL ADH..PATCH TP ONE (10:17)
[2017-08-10 10:30] LABS: ALANINE AMINOTRANSFERASE 21 U/L (9-52); ALBUMIN 4.4 g/dL (3.5-5.0); ALKALINE PHOSPHATASE 74 U/L (38-126); ANION GAP 11 (5-19); ASPARTATE AMINO TRANSFERASE 23 U/L (14-36); BILIRUBIN,DIRECT 0.2 mg/dL (0.0-0.4); BILIRUBIN,TOTAL 0.2 mg/dL (0.2-1.3); BLOOD UREA NITROGEN 12 mg/dL (7-20); CARBON DIOXIDE 28 mmol/L (22-30); CHLORIDE 109 mmol/L (98-107); GLUCOSE 86 mg/dL (75-110); PHOSPHORUS 3.7 mg/dL (2.5-4.5); POTASSIUM 4.7 mmol/L (3.6-5.0); SODIUM 147.5 mmol/L (137-145); TOTAL PROTEIN 7.2 g/dL (6.3-8.2)
[2017-08-10 10:38] LABS: APPEARANCE,URINE CLEAR; BILIRUBIN,URINE NEGATIVE (NEGATIVE); COLOR,URINE STRAW; GLUCOSE, URINE NEGATIVE (NEGATIVE); KETONES,URINE NEGATIVE (NEGATIVE); LEUKOCYTE ESTERASE,URINE NEGATIVE (NEGATIVE); NITRITE,URINE NEGATIVE (NEGATIVE); PROTEIN,URINE NEGATIVE (NEGATIVE); URINE SPECIFIC GRAVITY 1.006; UROBILINOGEN,URINE NEGATIVE mg/dL (<2.0)
--- NOTE | 2017-08-10 14:45 | EKG REPORT ---
SEVERITY:- OTHERWISE NORMAL ECG - SINUS ARRHYTHMIA, RATE 45-69 : Confirmed by: James Hinson MD 10-Aug-2017 14:44:19
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
== END 2017-08-10 10:35 | disposition left against medical advice (07) ==
LOC: ER 08:44
DX: R55 Syncope and collapse (principal); M54.9 Dorsalgia, unspecified; Z90.710 Acquired absence of both cervix and uterus; Z88.6 Allergy status to analgesic agent; Z91.02 Food additives allergy status
CPT/HCPCS: 36415; 80053; 81001; 81025; 83735; 84100; 84484; 85025; 93005; 93010; 99284

== ENCOUNTER 2017-09-08 09:14 | Emergency (ER) | payer MEDICAID ==
[2017-09-08] MEDS ORDERED: ZIPRASIDONE MESYLATE INJ/PF 20 MG SDV IM ONE (09:28)
[2017-09-08] MEDS ORDERED: BENZTROPINE MESYLATE INJ 2 MG/2 ML AMPULE IM ONE (09:29)
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
--- NOTE | 2017-09-08 11:28 | RADIOLOGY REPORT (SQ) ---
EXAM DESCRIPTION: FOOT RIGHT 2 VIEWS COMPLETED DATE/TIME: 09/08/2017 10:56 am REASON FOR STUDY: injury COMPARISON: None. NUMBER OF VIEWS: Two views TECHNIQUE: AP and lateral radiographic images acquired of the right foot. LIMITATIONS: None. FINDINGS: MINERALIZATION: Normal. BONES: No acute fracture or dislocation. No worrisome bone lesions. JOINTS: No effusions. SOFT TISSUES: No soft tissue swelling. No foreign body. OTHER: No other significant finding. IMPRESSION: NEGATIVE STUDY OF THE RIGHT FOOT. NO RADIOGRAPHIC EVIDENCE OF ACUTE INJURY. TECHNICAL DOCUMENTATION: JOB ID: [id number] [email or web address]- All Rights Reserved Reading location - IP/workstation name: [email or web address]
[2017-09-08 11:39] LABS: ABSOLUTE BASOPHILS # (AUTO) 0.1 10^3/uL (0.0-0.2); ABSOLUTE MONOCYTES (AUTO) 0.7 10^3/uL (0.1-1.4); ABSOLUTE NEUT (AUTO) 10.7 10^3/uL (1.7-8.2); BASOPHILS % (AUTO) 0.5 % (0-2); EOSINOPHILS % (AUTO) 0.3 % (0-6); HEMATOCRIT 43.4 % (36.0-47.0); HEMOGLOBIN 14.5 g/dL (12.0-15.5); MEAN CORPUSCULAR HEMOGLOBIN 29.4 pg (27.0-33.4); MEAN CORPUSCULAR HGB CONC 33.3 g/dL (32.0-36.0); MEAN CORPUSCULAR VOLUME 88 fl (80-97); MONOCYTES % (AUTO) 5.5 % (3-13); PLATELET COUNT 275 10^3/uL (150-450); RED BLOOD COUNT 4.92 10^6/uL (3.72-5.28); RED CELL DISTRIBUTION WIDTH 14.3 % (11.5-14.0); SEGMENTED NEUTROPHILS % (AUTO) 78.7 % (42-78); TOTAL CELLS COUNTED % (AUTO) 100 %; WHITE BLOOD COUNT 13.6 10^3/uL (4.0-10.5)
[2017-09-08 12:04] LABS: ALANINE AMINOTRANSFERASE 28 U/L (9-52); ALBUMIN 5.1 g/dL (3.5-5.0); ALKALINE PHOSPHATASE 95 U/L (38-126); ANION GAP 15 (5-19); ASPARTATE AMINO TRANSFERASE 33 U/L (14-36); BILIRUBIN,DIRECT 0.3 mg/dL (0.0-0.4); BILIRUBIN,TOTAL 0.6 mg/dL (0.2-1.3); BLOOD UREA NITROGEN 16 mg/dL (7-20); CALCIUM 10.6 mg/dL (8.4-10.2); CARBON DIOXIDE 21 mmol/L (22-30); CHLORIDE 109 mmol/L (98-107); GLUCOSE 83 mg/dL (75-110); POTASSIUM 4.3 mmol/L (3.6-5.0); SODIUM 145.1 mmol/L (137-145)
[2017-09-08 12:06] LABS: ACETAMINOPHEN < 10 ug/mL (10-30); ALCOHOL < 10 mg/dL (NONE DETECTED); SALICYLATE < 1.0 mg/dL (2.0-20.0)
[2017-09-08] MEDS ORDERED: IBUPROFEN 600 MG TABLET PO ONE (16:41)
[2017-09-08] MEDS ORDERED: LORAZEPAM INJ 2 MG/1 ML VIAL ONE (17:23)
[2017-09-08] MEDS ORDERED: ZIPRASIDONE MESYLATE INJ/PF 20 MG SDV IM PRN (17:52)
[2017-09-08] MEDS ORDERED: OLANZAPINE INJ/PF 10 MG SDV IM ONE (18:46)
[2017-09-09 04:50] LABS: APPEARANCE,URINE CLEAR; BILIRUBIN,URINE NEGATIVE (NEGATIVE); COLOR,URINE YELLOW; GLUCOSE, URINE NEGATIVE (NEGATIVE); KETONES,URINE TRACE mg/dL (NEGATIVE); LEUKOCYTE ESTERASE,URINE NEGATIVE (NEGATIVE); NITRITE,URINE NEGATIVE (NEGATIVE); PROTEIN,URINE NEGATIVE (NEGATIVE); UROBILINOGEN,URINE NEGATIVE mg/dL (<2.0)
[2017-09-09 05:10] LABS: URINE AMPHETAMINES SCREEN NEGATIVE; URINE BARBITURATES SCREEN UNCONFIRMED POSITIVE; URINE BENZODIAZEPINES SCREEN UNCONFIRMED POSITIVE; URINE COCAINE SCREEN NEGATIVE; URINE MARIJUANA (THC) SCREEN UNCONFIRMED POSITIVE; URINE METHADONE SCREEN NEGATIVE; URINE PHENCYCLIDINE SCREEN NEGATIVE
[2017-09-09] MEDS ORDERED: OXYCODONE-ACETAMINOPHEN 5-325 MG TABLET PO ONE (05:29)
[2017-09-09] MEDS ORDERED: NICOTINE 14 MG/24 HR PATCH.TD24 TD ONE (07:07)
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
[2017-09-09 08:51] VITALS: BP 110/86
--- NOTE | 2017-09-09 09:33 | ER Document Report ---
Doctor's Note Notes: 09/09/17 09:32 This is a follow-up evaluation: Primary diagnosis-violent behavior, PTSD Patient is here for the above reason, has been doing well, currently has --- complaint. On examination-vitals reviewed in the chart. General exam: Alert oriented 3 not in any acute distress HEENT: Normocephalic atraumatic pupils are equal reactive to light, Lungs-clear breath sounds no rales or wheezing. Cardiovascular system: Normal S1-S2 no murmurs. Gastrointestinal: Normal breath sounds, no organomegaly positive bowel sounds. Genitourinary: Skin: No lesions noted, no rash Psychiatric: Diagnoses: PTSD violent behavior Plan: Discharge home under the care of her friend.
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
== END 2017-09-09 10:11 | disposition home or self-care (01) ==
LOC: ER 09:14
DX: R45.6 Violent behavior (principal); F43.10 Post-traumatic stress disorder, unspecified; J45.909 Unspecified asthma, uncomplicated; M79.673 Pain in unspecified foot; S90.30XA Contusion of unspecified foot, initial encounter; W20.8XXA Other cause of strike by thrown, projected or falling object, initial encounter; F17.210 Nicotine dependence, cigarettes, uncomplicated; Z87.820 Personal history of traumatic brain injury; Z88.8 Allergy status to other drugs, medicaments and biological substances; Z88.6 Allergy status to analgesic agent; Z91.048 Other nonmedicinal substance allergy status
CPT/HCPCS: 99285; 96372; 36415; 80307 ×4; 85025; 80053; 81001; 73620; J3490 ×2; J3486

== ENCOUNTER 2017-12-20 12:05 | Emergency (ER) | payer OTHER, MEDICAID ==
[2017-12-20 12:13] VITALS: BP 120/69
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
[2017-12-20] MEDS ORDERED: HYDROCODONE/ACETAMINOPHEN 5-325 MG (6 TAB/ER DISP) PO PRN (13:28)
== END 2017-12-20 13:45 | disposition home or self-care (01) ==
LOC: ER 12:05
DX: S99.911D Unspecified injury of right ankle, subsequent encounter (principal); M25.571 Pain in right ankle and joints of right foot; V23.4XXD Motorcycle driver injured in collision with car, pick-up truck or van in traffic accident, subsequent encounter; J45.909 Unspecified asthma, uncomplicated
CPT/HCPCS: 99283

== ENCOUNTER 2018-02-10 06:57 | Emergency (ER) | payer OTHER, MEDICAID ==
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
[2018-02-10 09:23] VITALS: BP 101/53
== END 2018-02-10 09:26 | disposition home or self-care (01) ==
LOC: ER 06:57
DX: S06.0X0A Concussion without loss of consciousness, initial encounter (principal); W22.8XXA Striking against or struck by other objects, initial encounter; F17.200 Nicotine dependence, unspecified, uncomplicated; Z88.6 Allergy status to analgesic agent; Z90.710 Acquired absence of both cervix and uterus
CPT/HCPCS: 70450; 99283

== ENCOUNTER 2018-02-13 07:45 | Emergency (ER) | payer MEDICAID, OTHER ==
[2018-02-13 08:02] VITALS: BP 140/74
[2018-02-13] MEDS ORDERED: KETOROLAC TROMETHAMINE 60 MG/2 ML SDV IM ONE (09:06)
[2018-02-13] MEDS ORDERED: ONDANSETRON 4 MG TAB.RAPDIS PO ONE (09:07)
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
[2018-02-13 10:13] LABS: APPEARANCE,URINE SLIGHTLY-CLOUDY; BILIRUBIN,URINE NEGATIVE (NEGATIVE); COLOR,URINE STRAW; GLUCOSE, URINE NEGATIVE (NEGATIVE); KETONES,URINE NEGATIVE (NEGATIVE); LEUKOCYTE ESTERASE,URINE NEGATIVE (NEGATIVE); NITRITE,URINE NEGATIVE (NEGATIVE); PROTEIN,URINE NEGATIVE (NEGATIVE); URINE SPECIFIC GRAVITY 1.004; UROBILINOGEN,URINE NEGATIVE mg/dL (<2.0)
[2018-02-13] MEDS ORDERED: TETRACAINE HCL 0.5% OPH SOLN 4 ML ONE (11:28)
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
== END 2018-02-13 12:21 | disposition home or self-care (01) ==
LOC: ER 07:45
DX: S39.012A Strain of muscle, fascia and tendon of lower back, initial encounter (principal); S20.211A Contusion of right front wall of thorax, initial encounter; S16.1XXA Strain of muscle, fascia and tendon at neck level, initial encounter; S06.0X0A Concussion without loss of consciousness, initial encounter; H57.11 Ocular pain, right eye; Y04.8XXA Assault by other bodily force, initial encounter; F17.210 Nicotine dependence, cigarettes, uncomplicated; J44.9 Chronic obstructive pulmonary disease, unspecified; I69.954 Hemiplegia and hemiparesis following unspecified cerebrovascular disease affecting left non-dominant side; Z88.6 Allergy status to analgesic agent; Z90.710 Acquired absence of both cervix and uterus
CPT/HCPCS: 99284; 96372; 81001; 72110; 70450; 70486; 72125; J1885; S0119

== ENCOUNTER 2018-03-12 22:17 | Emergency (ER) | payer MEDICAID ==
[2018-03-12 22:34] VITALS: BP 137/88
== END 2018-03-12 22:39 | disposition left against medical advice (07) ==
LOC: ER 22:17
DX: Z53.21 Procedure and treatment not carried out due to patient leaving prior to being seen by health care provider (principal)

== ENCOUNTER 2018-03-13 11:13 | Emergency (ER) | payer MEDICAID ==
[2018-03-13] MEDS ORDERED: AMPICILLIN SOD/SULBACTAM 3 GM VIAL IV ONE (11:57)
[2018-03-13] MEDS ORDERED: FENTANYL CITRATE INJ/PF 100 MCG/2 ML AMPUL IV ONE (11:57)
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
--- NOTE | 2018-03-13 14:17 | RADIOLOGY REPORT (SQ) ---
EXAM DESCRIPTION: HAND RIGHT 3 VIEWS COMPLETED DATE/TIME: 03/13/2018 2:04 pm REASON FOR STUDY: 41, dog bite COMPARISON: None. EXAM PARAMETERS: NUMBER OF VIEWS: Three views. TECHNIQUE: AP, lateral and oblique radiographic images acquired of the right hand. LIMITATIONS: None. FINDINGS: MINERALIZATION: Normal. BONES: No acute fracture or dislocation. No worrisome bone lesions. JOINTS: No effusions. SOFT TISSUES: No soft tissue swelling. No foreign body. OTHER: No other significant finding. IMPRESSION: NEGATIVE STUDY OF THE RIGHT HAND. NO RADIOGRAPHIC EVIDENCE OF ACUTE INJURY. TECHNICAL DOCUMENTATION: JOB ID: [id number] [employer]- All Rights Reserved Reading location - IP/workstation name: [email or web address]
[2018-03-13 14:19] LABS: ABSOLUTE BASOPHILS # (AUTO) 0.1 10^3/uL (0.0-0.2); ABSOLUTE EOSINOPHILS # (AUTO) 0.1 10^3/uL (0.0-0.6); ABSOLUTE LYMPHOCYTES (AUTO) 2.4 10^3/uL (0.5-4.7); ABSOLUTE MONOCYTES (AUTO) 1.1 10^3/uL (0.1-1.4); ABSOLUTE NEUT (AUTO) 7.8 10^3/uL (1.7-8.2); BASOPHILS % (AUTO) 0.6 % (0-2); EOSINOPHILS % (AUTO) 0.8 % (0-6); HEMATOCRIT 43.2 % (36.0-47.0); HEMOGLOBIN 14.4 g/dL (12.0-15.5); LYMPHOCYTES % (AUTO) 21.3 % (13-45); MEAN CORPUSCULAR HEMOGLOBIN 28.7 pg (27.0-33.4); MEAN CORPUSCULAR HGB CONC 33.4 g/dL (32.0-36.0); MEAN CORPUSCULAR VOLUME 86 fl (80-97); MONOCYTES % (AUTO) 9.3 % (3-13); PLATELET COUNT 253 10^3/uL (150-450); RED BLOOD COUNT 5.03 10^6/uL (3.72-5.28); TOTAL CELLS COUNTED % (AUTO) 100 %; WHITE BLOOD COUNT 11.5 10^3/uL (4.0-10.5)
--- NOTE | 2018-03-13 14:20 | RADIOLOGY REPORT (SQ) ---
EXAM DESCRIPTION: WRIST RIGHT 3 VIEWS COMPLETED DATE/TIME: 03/13/2018 2:04 pm REASON FOR STUDY: 41, dog bite COMPARISON: None. NUMBER OF VIEWS: Three views. TECHNIQUE: AP, lateral, and oblique radiographic images acquired of the right wrist. LIMITATIONS: None. FINDINGS: MINERALIZATION: Normal. BONES: No acute fracture or dislocation. No worrisome bone lesions. Normal alignment. SOFT TISSUES: Dorsal soft tissue swelling. No foreign body. OTHER: No other significant finding. IMPRESSION: Soft tissue injury. TECHNICAL DOCUMENTATION: JOB ID: [id number] [facility]- All Rights Reserved Reading location - IP/workstation name: [email or web address]
[2018-03-13 14:40] LABS: ANION GAP 8 (5-19); BLOOD UREA NITROGEN 10 mg/dL (7-20); CALCIUM 9.9 mg/dL (8.4-10.2); CARBON DIOXIDE 24 mmol/L (22-30); CHLORIDE 108 mmol/L (98-107); GLUCOSE 98 mg/dL (75-110); POTASSIUM 4.3 mmol/L (3.6-5.0); SODIUM 139.6 mmol/L (137-145)
[2018-03-13 15:21] VITALS: BP 120/72
== END 2018-03-13 15:20 | disposition home or self-care (01) ==
LOC: ER 11:13
DX: S61.451A Open bite of right hand, initial encounter (principal); W54.0XXA Bitten by dog, initial encounter; I69.954 Hemiplegia and hemiparesis following unspecified cerebrovascular disease affecting left non-dominant side; Z88.6 Allergy status to analgesic agent; Z90.710 Acquired absence of both cervix and uterus
CPT/HCPCS: 99284; 96375; 96365; 36415; 87040; 85025; 80048; 73130; 73110; J3010; J0295

== ENCOUNTER 2018-05-17 12:24 | Emergency (ER) | payer MEDICAID ==
[2018-05-17 12:35] VITALS: BP 128/94
[2018-05-17] MEDS ORDERED: LORAZEPAM INJ 2 MG/1 ML VIAL IV ONE (12:44)
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
[2018-05-17 13:52] LABS: ABSOLUTE BASOPHILS # (AUTO) 0.1 10^3/uL (0.0-0.2); ABSOLUTE EOSINOPHILS # (AUTO) 0.1 10^3/uL (0.0-0.6); ABSOLUTE LYMPHOCYTES (AUTO) 3.3 10^3/uL (0.5-4.7); ABSOLUTE MONOCYTES (AUTO) 0.4 10^3/uL (0.1-1.4); ABSOLUTE NEUT (AUTO) 3.2 10^3/uL (1.7-8.2); BASOPHILS % (AUTO) 1.1 % (0-2); EOSINOPHILS % (AUTO) 1.5 % (0-6); HEMATOCRIT 39.5 % (36.0-47.0); HEMOGLOBIN 13.6 g/dL (12.0-15.5); LYMPHOCYTES % (AUTO) 46.4 % (13-45); MEAN CORPUSCULAR HGB CONC 34.3 g/dL (32.0-36.0); MEAN CORPUSCULAR VOLUME 87 fl (80-97); MONOCYTES % (AUTO) 5.8 % (3-13); PLATELET COUNT 390 10^3/uL (150-450); RED BLOOD COUNT 4.52 10^6/uL (3.72-5.28); RED CELL DISTRIBUTION WIDTH 15.4 % (11.5-14.0); SEGMENTED NEUTROPHILS % (AUTO) 45.2 % (42-78); TOTAL CELLS COUNTED % (AUTO) 100 %; WHITE BLOOD COUNT 7.1 10^3/uL (4.0-10.5)
[2018-05-17 13:54] LABS: APPEARANCE,URINE SLIGHTLY-CLOUDY; BILIRUBIN,URINE NEGATIVE (NEGATIVE); COLOR,URINE YELLOW; GLUCOSE, URINE NEGATIVE (NEGATIVE); KETONES,URINE TRACE mg/dL (NEGATIVE); LEUKOCYTE ESTERASE,URINE TRACE (NEGATIVE); NITRITE,URINE NEGATIVE (NEGATIVE); PROTEIN,URINE NEGATIVE (NEGATIVE); URINE SPECIFIC GRAVITY 1.017; UROBILINOGEN,URINE NEGATIVE mg/dL (<2.0)
[2018-05-17 14:12] LABS: URINE AMPHETAMINES SCREEN NEGATIVE; URINE BARBITURATES SCREEN NEGATIVE; URINE BENZODIAZEPINES SCREEN NEGATIVE; URINE COCAINE SCREEN NEGATIVE; URINE MARIJUANA (THC) SCREEN UNCONFIRMED POSITIVE; URINE METHADONE SCREEN NEGATIVE; URINE PHENCYCLIDINE SCREEN NEGATIVE
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
[2018-05-17 15:29] LABS: ALANINE AMINOTRANSFERASE 26 U/L (9-52); ALBUMIN 4.5 g/dL (3.5-5.0); ALKALINE PHOSPHATASE 91 U/L (38-126); ANION GAP 7 (5-19); ASPARTATE AMINO TRANSFERASE 24 U/L (14-36); BILIRUBIN,DIRECT 0.1 mg/dL (0.0-0.4); BILIRUBIN,TOTAL 0.5 mg/dL (0.2-1.3); BLOOD UREA NITROGEN 11 mg/dL (7-20); CALCIUM 9.9 mg/dL (8.4-10.2); CARBON DIOXIDE 27 mmol/L (22-30); CHLORIDE 110 mmol/L (98-107); GLUCOSE 94 mg/dL (75-110); POTASSIUM 3.6 mmol/L (3.6-5.0); SODIUM 143.7 mmol/L (137-145)
[2018-05-17 15:30] LABS: ALCOHOL < 10 mg/dL (NONE DETECTED)
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
--- NOTE | 2018-05-17 22:54 | EKG REPORT ---
SEVERITY:- NORMAL ECG - SINUS RHYTHM : Confirmed by: Valeria Bowers 17-May-2018 22:52:50
== END 2018-05-17 16:08 | disposition left against medical advice (07) ==
LOC: ER 12:24
DX: F41.9 Anxiety disorder, unspecified (principal); F43.10 Post-traumatic stress disorder, unspecified; T42.4X6A Underdosing of benzodiazepines, initial encounter; T43.226A Underdosing of selective serotonin reuptake inhibitors, initial encounter; T44.6X6A Underdosing of alpha-adrenoreceptor antagonists, initial encounter; Z91.128 Patient's intentional underdosing of medication regimen for other reason; Z91.14 Patient's other noncompliance with medication regimen; F12.10 Cannabis abuse, uncomplicated; R00.2 Palpitations; F17.200 Nicotine dependence, unspecified, uncomplicated; J44.9 Chronic obstructive pulmonary disease, unspecified; Z88.8 Allergy status to other drugs, medicaments and biological substances; Z88.5 Allergy status to narcotic agent; Z91.048 Other nonmedicinal substance allergy status; Z53.20 Procedure and treatment not carried out because of patient's decision for unspecified reasons; Z62.810 Personal history of physical and sexual abuse in childhood; Z87.820 Personal history of traumatic brain injury
CPT/HCPCS: 93005; 99281; 96374; 36415; 80307 ×2; 84443; 85025; 81025; 80053; 81001; 93010; J2060

== ENCOUNTER 2018-06-01 08:30 | Emergency (ER) | payer MEDICAID, OTHER ==
[2018-06-01] MEDS ORDERED: ACETAMINOPHEN 325 MG TABLET PO ONE (09:01)
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
[2018-06-01 10:32] LABS: APPEARANCE,URINE CLEAR; BILIRUBIN,URINE NEGATIVE (NEGATIVE); COLOR,URINE YELLOW; GLUCOSE, URINE NEGATIVE (NEGATIVE); KETONES,URINE NEGATIVE (NEGATIVE); LEUKOCYTE ESTERASE,URINE NEGATIVE (NEGATIVE); NITRITE,URINE NEGATIVE (NEGATIVE); PROTEIN,URINE NEGATIVE (NEGATIVE); URINE SPECIFIC GRAVITY 1.025; UROBILINOGEN,URINE NEGATIVE mg/dL (<2.0)
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
[2018-06-01 11:39] VITALS: BP 131/92
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
== END 2018-06-01 11:39 | disposition home or self-care (01) ==
LOC: ER 08:30
DX: S20.212A Contusion of left front wall of thorax, initial encounter (principal); S30.0XXA Contusion of lower back and pelvis, initial encounter; S80.12XA Contusion of left lower leg, initial encounter; S80.11XA Contusion of right lower leg, initial encounter; R10.12 Left upper quadrant pain; Y04.2XXA Assault by strike against or bumped into by another person, initial encounter; Y93.89 Activity, other specified; Y92.89 Other specified places as the place of occurrence of the external cause; R19.7 Diarrhea, unspecified; F17.210 Nicotine dependence, cigarettes, uncomplicated; J44.9 Chronic obstructive pulmonary disease, unspecified; Z88.8 Allergy status to other drugs, medicaments and biological substances; Z88.5 Allergy status to narcotic agent; Z91.048 Other nonmedicinal substance allergy status
CPT/HCPCS: 99284; 87086; 81001; 72220; 71101; 74177; J3490

== ENCOUNTER 2018-06-29 16:54 | Emergency (ER) | payer MEDICAID ==
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
[2018-06-29] MEDS ORDERED: ACETAMINOPHEN 325 MG TABLET PO ONE (18:16)
[2018-06-29] MEDS ORDERED: LORAZEPAM 1 MG TABLET PO ONE (18:16)
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
[2018-06-29 18:54] LABS: ABSOLUTE BASOPHILS # (AUTO) 0.1 10^3/uL (0.0-0.2); ABSOLUTE EOSINOPHILS # (AUTO) 0.1 10^3/uL (0.0-0.6); ABSOLUTE LYMPHOCYTES (AUTO) 3.9 10^3/uL (0.5-4.7); ABSOLUTE MONOCYTES (AUTO) 0.6 10^3/uL (0.1-1.4); ABSOLUTE NEUT (AUTO) 4.3 10^3/uL (1.7-8.2); BASOPHILS % (AUTO) 0.6 % (0-2); EOSINOPHILS % (AUTO) 0.8 % (0-6); HEMATOCRIT 41.1 % (36.0-47.0); LYMPHOCYTES % (AUTO) 43.6 % (13-45); MEAN CORPUSCULAR HEMOGLOBIN 29.9 pg (27.0-33.4); MEAN CORPUSCULAR HGB CONC 34.1 g/dL (32.0-36.0); MEAN CORPUSCULAR VOLUME 88 fl (80-97); MONOCYTES % (AUTO) 6.7 % (3-13); PLATELET COUNT 276 10^3/uL (150-450); RED BLOOD COUNT 4.69 10^6/uL (3.72-5.28); RED CELL DISTRIBUTION WIDTH 14.3 % (11.5-14.0); SEGMENTED NEUTROPHILS % (AUTO) 48.3 % (42-78); TOTAL CELLS COUNTED % (AUTO) 100 %; WHITE BLOOD COUNT 8.9 10^3/uL (4.0-10.5)
[2018-06-29 18:58] LABS: APPEARANCE,URINE CLEAR; BILIRUBIN,URINE NEGATIVE (NEGATIVE); COLOR,URINE STRAW; GLUCOSE, URINE NEGATIVE (NEGATIVE); KETONES,URINE NEGATIVE (NEGATIVE); LEUKOCYTE ESTERASE,URINE NEGATIVE (NEGATIVE); NITRITE,URINE NEGATIVE (NEGATIVE); PROTEIN,URINE NEGATIVE (NEGATIVE); URINE SPECIFIC GRAVITY 1.003; UROBILINOGEN,URINE NEGATIVE mg/dL (<2.0)
[2018-06-29 19:11] LABS: URINE AMPHETAMINES SCREEN NEGATIVE; URINE BARBITURATES SCREEN NEGATIVE; URINE BENZODIAZEPINES SCREEN NEGATIVE; URINE COCAINE SCREEN NEGATIVE; URINE MARIJUANA (THC) SCREEN UNCONFIRMED POSITIVE; URINE METHADONE SCREEN NEGATIVE; URINE PHENCYCLIDINE SCREEN NEGATIVE
[2018-06-29 19:15] LABS: ALANINE AMINOTRANSFERASE 23 U/L (9-52); ALBUMIN 4.6 g/dL (3.5-5.0); ALKALINE PHOSPHATASE 91 U/L (38-126); ANION GAP 7 (5-19); ASPARTATE AMINO TRANSFERASE 21 U/L (14-36); BILIRUBIN,DIRECT 0.2 mg/dL (0.0-0.4); BILIRUBIN,TOTAL 0.2 mg/dL (0.2-1.3); BLOOD UREA NITROGEN 11 mg/dL (7-20); CALCIUM 10.2 mg/dL (8.4-10.2); CARBON DIOXIDE 28 mmol/L (22-30); CHLORIDE 108 mmol/L (98-107); GLUCOSE 103 mg/dL (75-110); POTASSIUM 4.6 mmol/L (3.6-5.0); SODIUM 142.5 mmol/L (137-145); TOTAL PROTEIN 7.6 g/dL (6.3-8.2)
[2018-06-29 19:16] LABS: ACETAMINOPHEN < 10 ug/mL (10-30); ALCOHOL < 10 mg/dL (NONE DETECTED); SALICYLATE < 1.0 mg/dL (2.0-20.0)
--- NOTE | 2018-06-29 20:04 | EKG REPORT ---
SEVERITY:- NORMAL ECG - SINUS RHYTHM : Confirmed by: Yaquelin Ferrer MD 29-Jun-2018 20:02:41
[2018-06-29] MEDS ORDERED: LORAZEPAM INJ 2 MG/1 ML VIAL IV ONE (21:18)
[2018-06-29] MEDS ORDERED: DIPHENHYDRAMINE HCL 50 MG/ML VIAL IM ONE (21:18)
[2018-06-29] MEDS ORDERED: LORAZEPAM INJ 2 MG/1 ML VIAL IM ONE (21:20)
[2018-06-29] MEDS ORDERED: CLONIDINE HCL 0.2 MG TABLET PO ONE (23:16)
[2018-06-30] MEDS ORDERED: HALOPERIDOL 5 MG TABLET PO PRN (09:06)
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
[2018-06-30] MEDS: DIVALPROEX SODIUM 250 MG TABLET.DR PO SCH ×2 (09:48→18:20)
[2018-06-30] MEDS: BUSPIRONE HCL 10 MG TABLET PO SCH ×2 (09:48→18:20)
[2018-06-30] MEDS: PAROXETINE HCL 20 MG TABLET PO SCH (09:48)
[2018-06-30] MEDS ORDERED: DIPHENHYDRAMINE HCL 50 MG/ML VIAL IM ONE (13:00)
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
[2018-06-30] MEDS: BENZTROPINE MESYLATE INJ 2 MG/2 ML AMPULE IM SCH (16:52)
[2018-06-30] MEDS: ZIPRASIDONE MESYLATE INJ/PF 20 MG SDV IM SCH ×2 (17:08→23:58)
[2018-07-01] MEDS: ZIPRASIDONE MESYLATE INJ/PF 20 MG SDV IM SCH ×2 (06:05→11:19)
[2018-07-01] MEDS: PAROXETINE HCL 20 MG TABLET PO SCH (09:37)
[2018-07-01] MEDS: BUSPIRONE HCL 10 MG TABLET PO SCH (09:37)
[2018-07-01] MEDS: BENZTROPINE MESYLATE INJ 2 MG/2 ML AMPULE IM SCH (09:37)
[2018-07-01] MEDS: DIVALPROEX SODIUM 250 MG TABLET.DR PO SCH (09:37)
--- NOTE | 2018-07-01 11:32 | ER Document Report ---
Doctor's Note Notes: 07/01/18 11:31 Patient is doing well today. She states that the Geodon seemed to work well for her and she is agreeable to take that on an outpatient basis. She would be given a prescription for Geodon 20 mg twice daily, and Cogentin 1 mg daily and will be given a 2-week supply. That should provide her enough time to follow-up with her primary care provider or her psychiatric provider.
[2018-07-01 11:45] VITALS: BP 117/78
== END 2018-07-01 11:46 | disposition home or self-care (01) ==
LOC: ER 16:54
DX: R45.851 Suicidal ideations (principal); F60.3 Borderline personality disorder; F41.9 Anxiety disorder, unspecified; Z79.899 Other long term (current) drug therapy; F17.210 Nicotine dependence, cigarettes, uncomplicated; J44.9 Chronic obstructive pulmonary disease, unspecified
CPT/HCPCS: 93005; 36415; 80307 ×4; 85025; 80053; 81001; 93010; J3490 ×8; J0515 ×2; J1200 ×2; J2060; J3486 ×2; 96372; 99285